=== PATIENT | female | born 1965 | race Two or more races ===

== ENCOUNTER → 2017-10-06 15:17 | Outpatient (CLI) | payer MEDICAID, SELFPAY ==
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
== END ==
PROVIDERS: Family Provider Nurse Practitioner Family; PCP Nurse Practitioner Family; Visit Provider Nurse Practitioner Obstetrics & Gynecology
DX: R92.8 Other abnormal and inconclusive findings on diagnostic imaging of breast (principal)
CPT/HCPCS: 76641; 77066

== ENCOUNTER → 2018-03-16 15:24 | Outpatient (CLI) | payer MEDICAID, SELFPAY ==
--- NOTE | 2018-03-16 15:28 | MM_ITS ---
MM Dig mamm DX unilat RT CAD INDICATION: Follow-up ORDERING PHYSICIAN: Zandra Dallas PATIENT AGE: 52 years COMPARISON: 10/06/2017 TECHNIQUE: Standard images along with spot compression views FINDINGS: Average fibroglandular tissue. Postsurgical changes with surgical clips in the upper aspect of the right breast centrally with some architectural distortion felt to be related to scarring. No malignant appearing mass or malignant appearing microcalcification. No significant change compared to the previous exam IMPRESSION: Stable appearance of the right breast. Architectural distortion centrally felt to be related to postsurgical change, stable BI-RADS Category: 2 Benign Finding(s) RECOMMENDED FOLLOW-UP: 6M - 6 MONTH FOLLOW-UP (A letter has been sent to the patient regarding results of the study.)
== END ==
PROVIDERS: Family Provider Nurse Practitioner Family; PCP Nurse Practitioner Family; Visit Provider Nurse Practitioner Family
DX: Z12.31 Encounter for screening mammogram for malignant neoplasm of breast (principal)
CPT/HCPCS: 77065

== ENCOUNTER → 2018-04-17 09:09 | Outpatient (CLI) | payer MEDICAID, SELFPAY ==
--- NOTE | 2018-04-17 09:13 | US_ITS ---
US abdomen limited History:Right upper quadrant pain with nausea Ordering Physician:Zandra Dallas Patient Age: 52 years Comparison:None Findings: Pancreas:Unremarkable. No obvious mass or abnormal fluid collection. No ductal dilatation Liver:No focal liver lesions demonstrated. Homogeneous echogenicity. No intrahepatic biliary ductal dilatation evident. There is increased echogenicity of the liver consistent with fatty liver. There is appropriate directional blood flow within the portal vein which does not appear dilated. Right Kidney:Unremarkable. Normal size and echogenicity. No hydronephrosis Gallbladder:No gallstones, gallbladder wall thickening, pericholecystic fluid, or biliary dilatation. Impression: Fatty liver, otherwise Negative gallbladder/right upper quadrant ultrasound
== END ==
PROVIDERS: Family Provider Nurse Practitioner Family; PCP Nurse Practitioner Family; Visit Provider Nurse Practitioner Family
DX: R10.11 Right upper quadrant pain (principal)
CPT/HCPCS: 76705

== ENCOUNTER → 2018-05-20 10:08 | Outpatient (CLI) | payer MEDICAID, SELFPAY ==
--- NOTE | 2018-05-20 10:15 | NM_ITS ---
NM hepatobiliary wo pharm HISTORY: ITS.REASON: UPPER ABD PAIN,DYSPEPSIA ORDERING PHYSICIAN: Zandra Dallas PATIENT AGE: 52 years COMPARISON: None DOSE: 8.85 MCI TC Choletec Fatty Meal ENSURE. No pain reported after fatty meal FINDINGS: Homogeneous activity is present within the hepatic parenchyma. Activity is present in the gallbladder by 10 minutes. Activity is present in the small bowel by 60 minutes. The gallbladder ejection fraction is calculated to be 55%. The patient did not report pain or other symptoms during the fatty meal. IMPRESSION: Unremarkable hepatobiliary scan and gallbladder ejection fraction. No evidence of common or cystic duct obstruction with normal gallbladder ejection fraction
== END ==
PROVIDERS: Family Provider Nurse Practitioner Family; PCP Nurse Practitioner Family; Visit Provider Nurse Practitioner Family
DX: R10.13 Epigastric pain (principal); R10.10 Upper abdominal pain, unspecified
CPT/HCPCS: 78226; A9502

== ENCOUNTER → 2018-07-13 16:43 | Outpatient (CLI) | payer MEDICAID, SELFPAY | PROVIDERS: PCP Family Medicine; Visit Provider Student in an Organized Health Care Education/Training Program | DX: Z12.31 Encounter for screening mammogram for malignant neoplasm of breast (principal) ==

== ENCOUNTER → 2018-08-14 14:18 | Outpatient (CLI) | payer MEDICAID, SELFPAY ==
--- NOTE | 2018-08-14 14:24 | XR_ITS ---
EXAM: XR cervical spine 5V HISTORY: ITS.REASON: LEFT SHOULDER PAIN,CERVICALGIA ORDERING PHYSICIAN: Zandra Dallas PATIENT AGE: 52 years COMPARISON: None FINDINGS: Normal alignment. No fracture or dislocation. No lytic or blastic change. No significant degenerative change. The disc spaces are preserved. Patient's head is tilted toward the right which could be due to patient positioning or muscle spasm. C6 and C7 are not well visualized on the lateral view. There is a faint outline of the vertebral bodies on the swimmer's view. The foramina are widely patent IMPRESSION: No acute bony finding. Head tilt to the right which could be related to muscle spasm
--- NOTE | 2018-08-14 14:24 | XR_ITS ---
XR shoulder LT min 2V HISTORY: ITS.REASON: LEFT SHOULDER PAIN,CERVICALGIA ORDERING PHYSICIAN: Zandra Dallas PATIENT AGE: 52 years Comparison: None FINDINGS: No fracture or dislocation. No lytic or blastic change. There is normal mineralization. The joint spaces are well-preserved. No significant degenerative/arthritic changes. No erosive changes evident. IMPRESSION: Negative, no acute finding
== END ==
PROVIDERS: PCP Nurse Practitioner Family; Visit Provider Nurse Practitioner Family
DX: M25.512 Pain in left shoulder (principal); M54.2 Cervicalgia
CPT/HCPCS: 72050; 73030

== ENCOUNTER → 2018-08-19 13:28 | Outpatient (CLI) | payer MEDICAID, SELFPAY ==
--- NOTE | 2018-08-19 13:31 | MM_ITS ---
MM Dig mamm BI DX w/CAD, US breast LT complete INDICATION: Palpable abnormality left breast. Prior right breast surgery ORDERING PHYSICIAN: Zandra Dallas PATIENT AGE: 52 years COMPARISON: 03/16/2018, 10/06/2017, TECHNIQUE: Standard images performed along with bilateral spot compression views and left breast ultrasound FINDINGS: There is average fibroglandular tissue. Postsurgical changes are present involving the right breast superiorly with multiple surgical clips and architectural distortion as before. No malignant appearing mass or malignant appearing microcalcifications. There is some asymmetric density in the retroareolar region superiorly which does appear to compress out. The palpable abnormality is in the left axillary region. A marker is placed in this area. There are 2 lymph nodes deep to this region on the mammogram in the left axilla measuring approximately 2 cm each. There is an 8 mm nodular density in the medial aspect of the left breast at the 10:00 region. Similar to the study of 10/06/2017. No malignant appearing mass or malignant appearing microcalcification is evident. Left breast ultrasound: At 4:00 there is a 4 mm complex cystic nodule. Margins are somewhat ill-defined. O'clock there is a complex cystic nodule at 7 mm. At 11:00 there is a 7 mm cyst responding to the mammographic abnormality. A 4 mm cyst is present in the retroareolar region. IMPRESSION: Palpable abnormality left breast. Correspond to a couple of lymph nodes. There is no significant change in the cyst in the 10:00 region of the left breast. Ultrasound of left breast showed a somewhat complex hypoechoic nodule at 4:00 measuring 5 mm and at 6:00 measuring 7 mm. These may be due to complex cysts. Six-month follow-up is suggested. Recommend left-sided month mammographic and sonographic follow-up BI-RADS Category: 3 Probably Benign Finding Short Term Follow-up RECOMMENDED FOLLOW-UP: 6M - 6 MONTH FOLLOW-UP (A letter has been sent to the patient regarding results of the study.)
== END ==
PROVIDERS: PCP Nurse Practitioner Family; Visit Provider Nurse Practitioner Family
DX: N63.20 Unspecified lump in the left breast, unspecified quadrant (principal); R59.0 Localized enlarged lymph nodes; M25.512 Pain in left shoulder
CPT/HCPCS: 76641; 77066

== ENCOUNTER → 2018-12-17 13:34 | Outpatient (CLI) | payer MEDICAID, SELFPAY ==
--- NOTE | 2018-12-17 13:39 | US_ITS ---
MM Dig mamm DX unilat LT CAD, US breast LT complete INDICATION: Follow-up left breast density ORDERING PHYSICIAN: Laci Sandhu MD PATIENT AGE: 53 years COMPARISON: 08/19/2018, 09/04/2016 TECHNIQUE: Standard images performed along spot compression views and left breast ultrasound FINDINGS: Average fibroglandular tissue. There is a benign-appearing 7 mm nodule within the medial aspect of the left breast similar to the previous exam. This is not significant changed from 10/06/2017. Left breast ultrasound: Complex 6 x 6 mm cyst at 5:00 probably unchanged. 7 mm benign-appearing cyst at 11:00 unchanged. This may account for the mammographic abnormality 4 mm cyst in the retroareolar region unchanged. There are enlarged nodes in the axilla as previously described. IMPRESSION: Benign findings left breast. No evidence of malignancy BI-RADS Category: 2 Benign Finding(s) RECOMMENDED FOLLOW-UP: 6M - 6 MONTH FOLLOW-UP (A letter has been sent to the patient regarding results of the study.)
== END ==
PROVIDERS: PCP Family Medicine; Visit Provider Surgery
DX: N60.11 Diffuse cystic mastopathy of right breast (principal); N60.12 Diffuse cystic mastopathy of left breast
CPT/HCPCS: 76641; 77065

== ENCOUNTER → 2019-03-22 15:54 | Outpatient (CLI) | payer MEDICAID, SELFPAY ==
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
== END ==
PROVIDERS: PCP Nurse Practitioner Family; Visit Provider Nurse Practitioner Family
DX: R20.0 Anesthesia of skin (principal); S09.90XA Unspecified injury of head, initial encounter
CPT/HCPCS: 72050

== ENCOUNTER → 2019-03-23 15:30 | Outpatient (CLI) | payer MEDICAID, SELFPAY ==
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
== END ==
PROVIDERS: PCP Nurse Practitioner Family; Visit Provider Nurse Practitioner Family
DX: G44.89 Other headache syndrome (principal); S09.90XA Unspecified injury of head, initial encounter
CPT/HCPCS: 70450

== ENCOUNTER → 2019-04-14 10:22 | Outpatient (CLI) | payer MEDICAID, SELFPAY ==
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
== END ==
PROVIDERS: PCP Family Medicine; Visit Provider Nurse Practitioner Family
DX: R93.0 Abnormal findings on diagnostic imaging of skull and head, not elsewhere classified (principal)
CPT/HCPCS: 70488; Q9967

== ENCOUNTER 2019-06-04 16:00 | Outpatient (RCR) | payer OTHER, MEDICAID, SELFPAY ==
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
== END 2019-06-04 16:05 | disposition home or self-care (01) ==
LOC: PT 16:00
PROVIDERS: PCP Nurse Practitioner Family; Visit Provider Nurse Practitioner Family
DX: S13.4XXA Sprain of ligaments of cervical spine, initial encounter (principal); R20.0 Anesthesia of skin
CPT/HCPCS: 97010; 97012; 97014; 97035; 97110; 97140; 97163; G0283

== ENCOUNTER → 2019-08-03 13:28 | Outpatient (CLI) | payer OTHER, SELFPAY ==
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
== END ==
PROVIDERS: PCP Nurse Practitioner Family; Visit Provider Nurse Practitioner Family
DX: S13.4XXD Sprain of ligaments of cervical spine, subsequent encounter (principal); M54.2 Cervicalgia
CPT/HCPCS: 72141; 76376

== ENCOUNTER → 2019-09-07 12:56 | Outpatient (CLI) | payer OTHER, SELFPAY ==
--- NOTE | 2019-09-07 12:56 | US_ITS ---
PROCEDURE: US BREAST LT COMPLETE CLINICAL INDICATION: 6 MO F/U COMPARISON: BREASTLT US breast LT complete from 12/17/2018 MM DIG MAMM BI DX W/CAD from 09/07/2019 FINDINGS: There are multiple cyst of the left breast including a 7 x 3 mm cyst at 3 o'clock, 4 mm cyst at 5 o'clock, 8 mm complicated cyst at 5 o'clock not significantly changed, 7 mm cyst at 11 o'clock not significantly changed, 5 mm cyst in the retroareolar region and not significantly changed. There is a hypoechoic area at 1 o'clock. This is questionable and could be due to some underlying fibroglandular tissue. Probably benign.. IMPRESSION: BI-RADS category 3 probably benign. Recommend six-month follow-up Dictated by: Raffaele Boston MD 09/24/2019 14:23 Electronically signed by Raffaele Boston MD in [place] 09/24/2019 14:23
--- NOTE | 2019-09-07 12:56 | MM_ITS ---
PROCEDURE: MM DIG MAMM BI DX W/CAD CLINICAL INDICATION: 6 MO FU ON LEFT BREAST NODULE, yearly screening for right breast, previous biopsy right breast for benign disease. There is a history of breast cancer patient's paternal aunt diagnosed after menopause. COMPARISON: DXBI MM Dig mamm BI DX w/CAD from 10/06/2017 DXRT MM Dig mamm DX unilat RT CAD from 03/16/2018 DXBI MM Dig mamm BI DX w/CAD from 08/19/2018 DXLT MM Dig mamm DX unilat LT CAD from 12/17/2018 TECHNIQUE: Standard CC and MLO images were obtained. R2 CAD reviewed. FINDINGS: Prominent heterogenic fibroglandular densities are seen in the central portions of both breasts. The nodular density central portion left breast is stable unchanged from the previous studies. Again noted is a mole marker right breast. Multiple surgical clips right breast at previous biopsy site. There is no new or suspicious lesion in either breast and no suspicious microcalcifications. IMPRESSION: Stable exam with no suspicious lesions seen BI-RAD Category: 2 Benign Finding(s) FOLLOW-UP: 1YR 1 Year Follow-up (A letter has been sent to the patient regarding results of the study.) Dictated by: Dr. Adriel Abbott MD 09/11/2019 10:[address] Adriel Abbott MD in [place] 09/11/2019 10:03
== END ==
PROVIDERS: PCP Nurse Practitioner Family; Visit Provider Surgery
DX: N60.12 Diffuse cystic mastopathy of left breast (principal)
CPT/HCPCS: 76641; 77066

== ENCOUNTER 2019-11-26 16:00 | Outpatient (RCR) | payer OTHER, SELFPAY | END 2019-11-26 16:05 | disposition home or self-care (01) | LOC: PT 16:00 | PROVIDERS: PCP Nurse Practitioner Family; Visit Provider Family Medicine Sports Medicine | DX: S16.1XXS Strain of muscle, fascia and tendon at neck level, sequela (principal) | CPT/HCPCS: 20560; 20561; 97010; 97014; 97035; 97110; 97140; 97163; 97164; G0283 ==

== ENCOUNTER → 2020-03-06 10:12 | Outpatient (POV) | payer OTHER, SELFPAY | PROVIDERS: Visit Provider Nurse Practitioner Family | DX: Z00.00 Encounter for general adult medical examination without abnormal findings (principal) ==

== ENCOUNTER → 2020-03-13 15:58 | Outpatient (CLI) | payer OTHER, SELFPAY ==
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
--- NOTE | 2020-03-13 16:04 | XR_ITS ---
PROCEDURE: XR CERVICAL SPINE 5V CLINICAL INDICATION: RIGH ARM AND SHOULDER PAIN/CERVICALGIA COMPARISON: [id number] XR cervical spine 5V from 08/14/2018 FINDINGS: There is normal alignment. No fracture or dislocation. There is fusion of the C2 and C3 vertebral bodies/Klippel-Feil deformity. The neural foramina are widely patent. No significant degenerative change. 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
== END ==
PROVIDERS: PCP Nurse Practitioner Family; Visit Provider Nurse Practitioner Family
DX: M25.511 Pain in right shoulder (principal); M79.621 Pain in right upper arm; M54.2 Cervicalgia
CPT/HCPCS: 72050; 73030; 73060

== ENCOUNTER → 2020-04-11 15:05 | Outpatient (CLI) | payer OTHER, SELFPAY ==
--- NOTE | 2020-04-11 15:05 | US_ITS ---
PROCEDURE: US BREAST LT COMPLETE CLINICAL INDICATION: 6 mo fu Follow-up abnormal ultrasound COMPARISON: US BREASTLT US breast LT complete from 12/17/2018 MG MM DIG MAMM BI DX W/CAD from 09/07/2019 US US BREAST LT COMPLETE from 09/07/2019 FINDINGS: At 12 o'clock there is a bilobular cyst at 9 mm. Additional 6 mm cyst noted at 12 o'clock. Near the nipple there is a 10 x 4 mm complicated cyst at 12 o'clock. At 3 o'clock there is a 10 x 3 mm cyst. At 1 o'clock there is a hypoechoic nodule at 5 x 4 mm. This is not significantly changed. Continued follow-up suggested. At 5 o'clock there is a 6 x 3 mm cyst and at 6 o'clock a 6 mm complicated cyst at 10 o'clock there is a hypoechoic nodule at 5 mm and may be due to small cyst. At 11 o'clock there is a 7 mm complicated cyst with a septation. There is a mildly prominent node in the axilla at 3 cm IMPRESSION: There are multiple left breast cysts some of which are complicated. No significant change in the hypoechoic nodule 1 o'clock. BI-RADS category 3 probably benign. Recommend continued six-month follow-up along with bilateral mammogram Dictated b Raffaele Boston MD 04/14/2020 10:53 Raffaele Boston MD in [place] 04/14/2020 10:53
== END ==
PROVIDERS: PCP Nurse Practitioner Family; Visit Provider Surgery
DX: N60.02 Solitary cyst of left breast (principal)
CPT/HCPCS: 76641

== ENCOUNTER → 2020-04-24 14:18 | Outpatient (CLI) | payer OTHER, SELFPAY ==
--- NOTE | 2020-04-24 14:26 | XR_ITS ---
PROCEDURE: XR CHEST 2V CLINICAL HISTORY: CHEST PAIN AT REST, SOB COMPARISON: CR CXR CHEST(2 VIEWS-NOT PORTABLE) from 05/01/2015 FINDINGS: The cardiomediastinal silhouette and pulmonary vascularity are within normal limits. The lungs are clear without infiltrates, suspicious nodules, or pleural effusions. Surgical clips overlie the mid chest in the right breast region. No acute bony findings. IMPRESSION: No acute findings. Dictated by: Raffaele Boston MD 04/24/2020 15:15 Raffaele Boston MD in [place] 04/24/2020 15:15
== END ==
PROVIDERS: PCP Nurse Practitioner Family; Visit Provider Nurse Practitioner Family
DX: R07.9 Chest pain, unspecified (principal); R06.02 Shortness of breath
CPT/HCPCS: 71046

== ENCOUNTER → 2020-05-01 09:40 | Outpatient (CLI) | payer OTHER, SELFPAY ==
[2020-05-01 10:25] VITALS: PULSE 71; PULSE 76
== END ==
PROVIDERS: PCP Nurse Practitioner Family; Visit Provider Nurse Practitioner Family
DX: R06.02 Shortness of breath (principal); R06.00 Dyspnea, unspecified
CPT/HCPCS: 94060; 94640

== ENCOUNTER 2020-05-04 17:30 | Outpatient (RCR) | payer OTHER, SELFPAY | END 2020-05-04 18:27 | disposition home or self-care (01) | LOC: PT 17:30 | PROVIDERS: PCP Nurse Practitioner Family; Visit Provider Family Medicine Sports Medicine | DX: M54.2 Cervicalgia; S16.1XXS Strain of muscle, fascia and tendon at neck level, sequela | CPT/HCPCS: 20560; 97010; 97012; 97014; 97110; 97140; 97163; G0283 ==

== ENCOUNTER → 2020-08-08 11:53 | Outpatient (CLI) | payer OTHER, SELFPAY ==
[2020-08-09 15:51] LABS: Covid-19 Nasal PCR Sendout Lex Not Detected
== END ==
PROVIDERS: PCP Nurse Practitioner Family; Visit Provider Nurse Practitioner Family
DX: Z03.818 Encounter for observation for suspected exposure to other biological agents ruled out (principal)
CPT/HCPCS: U0004

== ENCOUNTER → 2020-09-18 16:04 | Outpatient (CLI) | payer OTHER, SELFPAY ==
--- NOTE | 2020-09-18 16:07 | MM_ITS ---
PROCEDURE: MM DIG SCREENING MAMM BI W/CAD Digital Breast Tomosynthesis Included CLINICAL INDICATION: 1 yr fu There has been a previous lumpectomy right breast. There is a history of breast cancer in the patient's paternal aunt diagnosed in her 50s. COMPARISON: US BREASTLT US breast LT complete from 10/06/2017 MG DXBI MM Dig mamm BI DX w/CAD from 08/19/2018 MG DXLT MM Dig mamm DX unilat LT CAD from 12/17/2018 MG MM DIG MAMM BI DX W/CAD from 09/07/2019 TECHNIQUE: Standard CC and MLO images and 3D Tomosynthesis was obtained. R2 CAD reviewed. FINDINGS: Moderate diffuse fibroglandular densities are seen in the central portions of both breast. There is moderate post lumpectomy scarring with surgical clips upper central portion right breast. There are few scattered benign-appearing microcalcifications right breast. There is no new or suspicious lesion in either breast and no suspicious microcalcifications. IMPRESSION: Moderate breast density with stable post lumpectomy scarring right breast BI-RAD Category: 2 Benign Finding(s) FOLLOW-UP: 1YR 1 Year Follow-up (A letter has been sent to the patient regarding results of the study.) Dictated by: Dr. Adriel Abbott MD 09/19/2020 08:28 Dr. Adriel Abbott MD in [place] 09/19/2020 08:28
== END ==
PROVIDERS: PCP Nurse Practitioner Family; Visit Provider Surgery
DX: Z12.31 Encounter for screening mammogram for malignant neoplasm of breast (principal)
CPT/HCPCS: 77063; 77067

== ENCOUNTER → 2020-10-02 13:05 | Outpatient (CLI) | payer OTHER, SELFPAY ==
--- NOTE | 2020-10-02 13:06 | US_ITS ---
PROCEDURE: US BREAST LT COMPLETE CLINICAL INDICATION: Lt breast cyst COMPARISON: US US BREAST LT COMPLETE from 09/07/2019 US US BREAST LT COMPLETE from 04/11/2020 FINDINGS: There is a complicated cyst in the 12 o'clock region of the left breast measuring 8 4 mm. At 1 o'clock there is a 4 mm cyst. At 2 o'clock there is a 10 x 3 mm cyst. At 1 o'clock there is a 4 x 5 mm slightly hypoechoic nodule not cystic. At 3 o'clock there is a 10 x 3 mm complicated cyst. At 5 o'clock there is a 5 mm complicated cyst. At 6 o'clock there is a 9 x 7 mm complicated cyst. At 10 o'clock there is a 7 x 4 mm cyst. At 11 o'clock there is a 3 mm cyst. Small nodes are present in the axilla IMPRESSION: Numerous complicated left breast cysts not significantly changed. No change 4 mm hypoechoic left breast nodule from 09/07/2019. Dictated by: Raffaele Boston MD 10/09/2020 17:28 Raffaele Boston MD in [place] 10/09/2020 17:28
== END ==
PROVIDERS: PCP Nurse Practitioner Family; Visit Provider Surgery
DX: N60.12 Diffuse cystic mastopathy of left breast (principal)
CPT/HCPCS: 76641

== ENCOUNTER → 2020-10-30 11:25 | Outpatient (POV) | payer OTHER, SELFPAY | PROVIDERS: Visit Provider Nurse Practitioner Family | DX: Z00.00 Encounter for general adult medical examination without abnormal findings (principal) ==

== ENCOUNTER 2021-01-01 09:33 | Emergency (ER) | payer OTHER, SELFPAY ==
[2021-01-01 09:52] VITALS: BP 125/77; PULSE 78; RESP 18; TEMP 37; O2SAT 100; BMI 24.8
[2021-01-01 10:00] LABS: Apearance,Urine Clear (Clear); Color,Urine Yellow (Yellow)
[2021-01-01 10:01] LABS: Bilirubin,Urine Negative (Negative); Blood, Urine Trace (Negative); Glucose,Urine (UA) Negative (Negative); Ketones,Urine Negative (Negative); Protein,Urine Negative (Negative); UTC Leukocyte Esterase,Urine 1+ (Negative); UTC Nitrate,Urine Negative (Negative); Urobilinogen,Urine 0.2 EU/dl (0.2)
--- NOTE | 2021-01-01 10:13 | HMH.EDUTC ---
[facility] [place] Clinical Impression: UTI (urinary tract infection) Qualifiers: Urinary tract infection type: site unspecified Hematuria presence: with hematuria Qualified Code(s): N39.0 - Urinary tract infection, site not specified; R31.9 - Hematuria, unspecified Disposition: Home, Self-Care Condition on Discharge: Good Instructions: Trimethoprim/Sulfamethoxazole (Alternative Therapy), Phenazopyridine Additional Instructions: *Increase fluids. Water not Soda or Tea *Start antibiotic immediately and be sure to take as ordered for the FULL length of time although you should start to see improvement over the next 48 hours *Pyridium as needed Remember this medication will turn your urine [place]. This is normal but it will stain what ever it gets on *You should not use Pyridium for more than 48 hours. If so , follow up with your primary physician to review urine culture and ensure that antibiotic is adequate for infection *Be SURE to follow up anytime for new or worsening symptoms with your family doctor. AND in 48 hours for urine culture results with your family doctor, if you do not have a doctor then you may call back to the [facility] for urine culture results and further treatment. We do recommend that you choose and establish care with a Primary Care Physician. AND follow up with them in 10-14 days to repeat UA to ensure infection is resolved and blood no longer present *Be sure to let your PCP know that we sent urine cultures from the [facility] so they can follow up to ensure that you area the on the correct antibiotic Call your doctor office and make appointment for 48 hours (2 days from today) to follow up and get the results of your urine culture and further treatment Follow up with Family Doctor or call back to the [facility] on Fri for urine culture results to make sure you are on correct antibiotic Prescriptions: Sulfamethoxazole/Trimethoprim [Bactrim DS tablet] 1 each PO BID 10 Days #20 tab Transmission Status: Pending to [employer] # Phenazopyridine HCl [Pyridium 200mg Tablet] 200 pow PO TID #6 tab Transmission Status: Pending to [employer] # Referrals: Zandra Dallas APRN [Primary Care Provider] - As needed Time of Disposition: 10:26 Medical Decision Making - Ashok Inquiry Pt receiving controlled substance: No Ashok was queried for this patient: No Vital Signs: 01/01/21 09:52 Temperature 98.6 F Temperature Source Oral Pulse Rate [Right Brachial] 78 Respiratory Rate 18 Blood Pressure [Right Arm] 125/77 Blood Pressure Mean [Right Arm] 93 Blood Pressure Source [Right Arm] Automatic Cuff Blood Pressure Position [Right Arm] Sitting 02 Sat by Pulse Oximetry 78 L Oxygen Delivery Method Room Air - Lab Data Lab results reviewed: Yes: I reviewed the patient's lab results. Lab Results 01/01/21 09:42: Urine Color Yellow, Urine Appearance Clear, Urine pH 7.0, Ur Specific [place] 1.010, Urine Protein Negative, Urine Glucose (UA) Negative, Urine Ketones Negative, Urine Blood Trace, Urine Nitrate Negative, Urine Bilirubin Negative, Urine Urobilinogen 0.2, Ur Leukocyte Esterase 1+ A Orders (Tests/Meds): ORDERS Category Date Time Status Urine Culture Stat Micro 01/01/21 10:00 Ordered Medical Decision Narrative: Patient reports that she has taken both medications before without complications or reactions [facility] [place] HPI - General Stated complaint: possible uti Time Seen by Provider: 01/01/21 10:15 Mode of Arrival: Ambulatory Source of Information: Patient Limitations: No Limitations Description of Symptoms (Recalled from Triage Doc. by RN): lower abdominal cramping, frequent urination & burning since last night. HEENT Symptoms (Recalled from RN notes): No Resp Symptoms (Recalled from RN notes): No Skin Symptoms (Recalled from RN notes): No MS Symptoms (Recalled from RN notes): No Functional Status (Recalled from RN notes): wnl - History of Present Illness Provider Complaint: Sandi
[2021-01-01 10:38] VITALS: BP 125/77; PULSE 78; RESP 18; TEMP 37; O2SAT 100
== END 2021-01-01 10:40 | disposition home or self-care (01) ==
PROVIDERS: Emergency Provider Nurse Practitioner; PCP Nurse Practitioner Family
DX: N30.01 Acute cystitis with hematuria (principal); E78.5 Hyperlipidemia, unspecified
CPT/HCPCS: 81003; 87086; 87088; 87186; 99202; G0463

== ENCOUNTER 2021-01-11 16:26 | Emergency (ER) | payer OTHER, SELFPAY ==
[2021-01-11 16:38] VITALS: BP 140/83; PULSE 73; RESP 16; TEMP 36.9; O2SAT 99; BMI 26.5
--- NOTE | 2021-01-11 16:43 | HMH.EDUTC ---
[facility] – [place] Disposition Clinical Impression: Sinusitis Qualifiers: Sinusitis location: unspecified location Chronicity: unspecified Qualified Code(s): J32.9 - Chronic sinusitis, unspecified Disposition: Home, Self-Care Condition on Discharge: Good Instructions: Sinusitis, DI for Sinusitis Additional Instructions: *Monitor Temp, Over the counter Motrin or Tylenol as directed/as needed Tylenol every 4 hours and Motrin every 6 hours (as long as your family doctor has told you that you can take it) for fever or pain. and straight to ER if unable to lower temp less than 101.0 after medication given *Warm salt water gargles may help to soothe the throat *Throat Lozenges *Warm fluids like tea with honey may help to soothe the throat *Sleep elevated *Humidifier/Vaporizer *Flonase 2 sprays in each nostril daily but be aware that it may take 2-3 days before you notice improvement Take medication as prescribed Follow up IMMEDIATELY for new or worsening symptoms or no Noticeable improvement over the next 48-72 hours. 911 for difficulty breathing or swallowing Prescriptions: predniSONE [Deltasone 10mg tablet] 10 mg PO BID 5 Days #10 tab Transmission Status: Pending to [employer] # Fluticasone Propionate [Flonase 50mcg nasal spray 16gm] 1 spr NS DAILY #1 bottle Transmission Status: Pending to [employer] # Azithromycin [Z-Romain 250mg Tab] 250 mg PO DIRECTED #6 tab Transmission Status: Pending to [employer] # Referrals: Zandra Dallas APRN [Primary Care Provider] - As needed Time of Disposition: 16:51 Medical Decision Making - Ashok Inquiry Pt receiving controlled substance: No Ashok was queried for this patient: No Vital Signs: 01/11/21 16:38 Temperature 98.4 F Temperature Source Oral Pulse Rate [Right] 73 Respiratory Rate 16 Blood Pressure [Right Arm] 140/83 Blood Pressure Mean [Right Arm] 102 Blood Pressure Source [Right Arm] Automatic Cuff Blood Pressure Position [Right Arm] Sitting 02 Sat by Pulse Oximetry 99 [facility] [place] HPI - General Stated complaint: pain behind left ear down neck Time Seen by Provider: 01/11/21 16:43 Mode of Arrival: Ambulatory Source of Information: Patient Limitations: No Limitations Description of Symptoms (Recalled from Triage Doc. by RN): pt c/o sinus pressure, and L ear pain and pressure. HEENT Symptoms (Recalled from RN notes): Yes (sinus pressure and L ear pain) Resp Symptoms (Recalled from RN notes): No Skin Symptoms (Recalled from RN notes): No MS Symptoms (Recalled from RN notes): No Functional Status (Recalled from RN notes): na - History of Present Illness Provider Complaint: Patient states that for over a week she has been having sinus pain and pressure States that for the last 3 days she has been having pain and pressure in her left ear and feels like it goes down into her neck States that today she wasnt feeling any better and still having pressure so she came in States that she is primarly Swedish speaking but can understand Ethiopian and able to speak limited Ethiopian - Related Data Home Medications Medication Instructions Recorded Confirmed levothyroxine 50 mcg capsule 50 mcg PO ONCE 04/09/18 09/27/20 omeprazole 40 mg capsule,delayed 40 mg PO ONCE 04/09/18 09/27/20 release Loratadine/Pseudoephedrine 1 each PO DAILY 09/17/19 09/27/20 [Claritin-D 24 Hour Tablet] Previous Rx's Medication Instructions Recorded Phenazopyridine HCl [Pyridium 200 pow PO TID #6 tab 01/01/21 200mg Tablet] Sulfamethoxazole/Trimethoprim 1 each PO BID 10 Days #20 tab 01/01/21 [Bactrim DS tablet] Azithromycin [Z-Romain 250mg Tab] 250 mg PO DIRECTED #6 tab 01/11/21 Fluticasone Propionate [Flonase 1 spr NS DAILY #1 bottle 01/11/21 50mcg nasal spray 16gm] predniSONE [Deltasone 10mg tablet] 10 mg PO BID 5 Days #10 tab 01/11/21 Allergies Allergy/AdvReac Type Severity Reaction Status Date / Time nickel [NICKEL] Allergy Unknown
[2021-01-11 17:02] VITALS: BP 140/87; PULSE 76; RESP 17; TEMP 36.6
== END 2021-01-11 17:02 | disposition home or self-care (01) ==
PROVIDERS: Emergency Provider Nurse Practitioner; PCP Nurse Practitioner Family
DX: J32.9 Chronic sinusitis, unspecified (principal); E03.9 Hypothyroidism, unspecified; E78.5 Hyperlipidemia, unspecified; Z79.899 Other long term (current) drug therapy
CPT/HCPCS: 99202; G0463

== ENCOUNTER 2021-02-23 17:13 | Emergency (ER) | payer OTHER, SELFPAY ==
[2021-02-23 17:20] VITALS: BP 146/85; PULSE 83; RESP 19; TEMP 37.1; O2SAT 99; BMI 25.2
--- NOTE | 2021-02-23 18:02 | HMH.EDUTC ---
[facility] [place] Clinical Impression: Bronchitis Pharyngitis Qualifiers: Pharyngitis/tonsillitis etiology: unspecified etiology Qualified Code(s): J02.9 - Acute pharyngitis, unspecified Disposition: Home, Self-Care Condition on Discharge: Good Instructions: DI for Acute Bronchitis Additional Instructions: Drink plenty of fluids. Take tylenol or ibuprofen for pain or fever. Take the medications as directed. Follow up with your regular doctor. GO TO THE ER FOR ANY WORSENING SYMPTOMS Prescriptions: predniSONE [Prednisone 20mg Tab] 20 mg PO BID 4 Days #8 tab Transmission Status: Received by [facility] # Benzonatate [Tessalon Perle 100mg Cap] 100 mg PO TIDP PRN #30 cap PRN Reason: Cough Transmission Status: Received by [facility] # Azithromycin [Z-Romain 250mg Tab*] 250 mg PO UD DOSE PK #6 tab Transmission Status: Received by [facility] # Referrals: Zandra Dallas APRN [Primary Care Provider] - Time of Disposition: 18:21 Medical Decision Making - Medical Records Medical records reviewed: No: I reviewed the patient's medical records. - Ashok Inquiry Pt receiving controlled substance: No Vital Signs: 02/23/21 17:20 02/23/21 18:31 Temperature 98.8 F 98.8 F Temperature Source Oral Pulse Rate 83 Pulse Rate [Right Brachial] 83 Respiratory Rate 19 19 Blood Pressure 146/85 H Blood Pressure [Right Arm] 146/85 H Blood Pressure Mean [Right Arm] 105 Blood Pressure Source [Right Arm] Automatic Cuff Blood Pressure Position [Right Arm] Sitting 02 Sat by Pulse Oximetry 99 Oxygen Delivery Method Room Air - Lab Data Lab results reviewed: Yes: I reviewed the patient's lab results. Orders (Tests/Meds): ORDERS Category Date Time Status Covid-19 Nasal PCR ([facility]) Routine Lab 02/23/21 18:32 Received [facility] [place] - General Stated complaint: sore throat Time Seen by Provider: 02/23/21 18:02 - History of Present Illness Provider Complaint: She c/o sore throat and cough for the past 2 days. She denies any covid exposure. - Related Data Home Medications Medication Instructions Recorded Confirmed levothyroxine 50 mcg capsule 50 mcg PO ONCE 04/09/18 09/27/20 omeprazole 40 mg capsule,delayed 40 mg PO ONCE 04/09/18 09/27/20 release Loratadine/Pseudoephedrine 1 each PO DAILY 09/17/19 09/27/20 [Claritin-D 24 Hour Tablet] Previous Rx's Medication Instructions Recorded Phenazopyridine HCl [Pyridium 200 pow PO TID #6 tab 01/01/21 200mg Tablet] Sulfamethoxazole/Trimethoprim 1 each PO BID 10 Days #20 tab 01/01/21 [Bactrim DS tablet] Azithromycin [Z-Romain 250mg Tab] 250 mg PO DIRECTED #6 tab 01/11/21 Fluticasone Propionate [Flonase 1 spr NS DAILY #1 bottle 01/11/21 50mcg nasal spray 16gm] predniSONE [Deltasone 10mg tablet] 10 mg PO BID 5 Days #10 tab 01/11/21 Azithromycin [Z-Romain 250mg Tab*] 250 mg PO UD DOSE PK #6 tab 02/23/21 Benzonatate [Tessalon Perle 100mg 100 mg PO TIDP PRN #30 cap 02/23/21 Cap] predniSONE [Prednisone 20mg 20 mg PO BID 4 Days #8 tab 02/23/21 Tab] Allergies Allergy/AdvReac Type Severity Reaction Status Date / Time nickel [NICKEL] Allergy Unknown I-RASH Verified 01/11/21 16:42 silver Allergy Unknown Blister Verified 01/11/21 16:42 [From [employer] Mesh] [facility] History - Hepatitis A Screen Attestation statement:: This patient has been screened for Hepatitis A risk factors. I have reviewed the patient's past medical history: Yes Medical History: Reports:: Hyperlipidemia, Urinary Tract Infection Denies:: Cancer, Diabetes Mellitus Type 1, Diabetes Mellitus Type 2, Internal Pacemaker, MRSA, Seizures Other Medical History: Reports: Thyroid Disease Laterality Cases: Right: Breast Biopsy Other Surgeries: Yes: Colonoscopy, Dilation and Curettage, Other. No: Pacemaker Amputation: No Fractures: No - Social History Smoking Status: Never smoker Alcohol Intake: never
[2021-02-23 18:31] VITALS: BP 146/85; PULSE 83; RESP 19; TEMP 37.1; O2SAT 99
== END 2021-02-23 18:35 | disposition home or self-care (01) ==
PROVIDERS: Emergency Provider Nurse Practitioner Family; PCP Nurse Practitioner Family
DX: J40 Bronchitis, not specified as acute or chronic (principal)
CPT/HCPCS: 99202; G0463; U0003

== ENCOUNTER → 2021-04-09 13:21 | Outpatient (CLI) | payer OTHER, SELFPAY ==
--- NOTE | 2021-04-09 13:22 | US_ITS ---
PROCEDURE: US BREAST LT COMPLETE CLINICAL INDICATION: cyst Follow-up breast nodules COMPARISON: US US BREAST LT COMPLETE from 04/11/2020 US US BREAST LT COMPLETE from 10/02/2020 FINDINGS: There are numerous complicated cyst as previously described. A 5 mm hypoechoic nodule is present 1 o'clock unchanged. May be due to a complicated cyst or even asymmetric fibroglandular tissue. No suspicious nodules are identified. IMPRESSION: Benign findings. No significant change. Dictated by: Raffaele Boston MD 04/16/2021 13:40 Raffaele Boston MD in [place] 04/16/2021 13:40
== END ==
PROVIDERS: PCP Nurse Practitioner Family; Visit Provider Surgery
DX: N60.02 Solitary cyst of left breast (principal)
CPT/HCPCS: 76641

== ENCOUNTER → 2021-06-19 15:48 | Outpatient (CLI) | payer OTHER, SELFPAY ==
[2021-06-19 16:22] LABS: Basophils # 0.1 K/mm3 (0-0.2); Basophils % 1.2 % (0.1-2.0); Eosinophils # 0.4 K/mm3 (0.0-0.4); Hematocrit 42.3 % (37.0-47.0); Hemoglobin 13.8 g/dL (12.2-16.2); Lymphocytes # 1.5 K/mm3 (0.7-4.5); Lymphocytes % 15.3 % (10-50); Mean Corpuscular HGB Conc 32.7 g/dL (31.8-35.4); Mean Corpuscular Hemoglobin 31.3 pg (27.0-31.2); Mean Corpuscular Volume 95.5 fl (81-99); Mean Platelet Volume 10.1 fl (7.4-10.4); Monocytes # 0.5 K/mm3 (0.1-1.0); Monocytes % 4.6 % (1.7-9.3); Neutrophils # 7.3 K/mm3 (1.8-7.8); Neutrophils % 74.8 % (37.0-80.0); Platelet Count 234 K/mm3 (142-424); Red Blood Count 4.43 M/mm3 (4.20-5.40); Red Cell Distribution Width 13.4 % (11.5-17.5); White Blood Count 9.8 K/mm3 (4.8-10.8)
[2021-06-19 19:04] LABS: Free T4 (Free Thyroxine) 0.77 ng/dl (0.78-2.19)
[2021-06-19 22:20] LABS: Thyroid Stimulating Hormone 2.31 uIU/mL (0.465-4.68)
[2021-06-21 09:13] LABS: Triiodothyronine (T3) Free 2.9 pg/mL (2.0-4.4)
== END ==
PROVIDERS: Visit Provider Nurse Practitioner Family
DX: E03.9 Hypothyroidism, unspecified (principal); R23.8 Other skin changes
CPT/HCPCS: 36415; 84439; 84443; 84481; 85025

== ENCOUNTER 2021-09-08 16:07 | Emergency (ER) | payer OTHER, SELFPAY ==
--- NOTE | 2021-09-08 17:52 | HMH.EDUTC ---
[facility] [place]: Strep throat Sinusitis Qualifiers: Sinusitis location: unspecified location Chronicity: acute Recurrence: non-recurrent Qualified Code(s): J01.90 - Acute sinusitis, unspecified Disposition: Home, Self-Care Condition on Discharge: Good Instructions: Strep Throat, DI for Sinusitis, DI for Strep Throat Additional Instructions: Drink plenty of fluids. Take tylenol or ibuprofen for pain or fever. Take the medications as directed. Follow up with your regular doctor. GO TO THE ER FOR ANY WORSENING SYMPTOMS Prescriptions: Benzonatate [Benzonatate 100mg cap] 100 mg PO TIDP PRN #30 cap PRN Reason: Cough Transmission Status: Received by [facility] methylPREDNISolone [Medrol] 4 mg PO DIRECTED 6 Days #21 packet Transmission Status: Received by [facility] Azithromycin [Z-Romain 250mg Tab*] 250 mg PO UD DOSE PK #6 tab Transmission Status: Received by [facility] Referrals: Zandra Dallas APRN [Primary Care Provider] - Time of Disposition: 18:16 Medical Decision Making - Medical Records Medical records reviewed: No: I reviewed the patient's medical records. - Ashok Inquiry Pt receiving controlled substance: No Vital Signs: 09/08/21 17:59 09/08/21 18:20 Temperature 98.2 F 98.2 F Temperature Source Oral Pulse Rate 78 Pulse Rate [Left] 78 Respiratory Rate 18 18 Blood Pressure 140/87 Blood Pressure [Right Arm] 140/87 Blood Pressure Mean [Right Arm] 104 02 Sat by Pulse Oximetry 100 - Lab Data Lab results reviewed: Yes: I reviewed the patient's lab results. Lab Results 09/08/21 18:21: Chlamy pneumoniae PCR Not detected, Adenovirus (PCR) Not detected, B. pertussis DNA (PCR) Not detected, Coronavirus OC43 (PCR) Not detected, Coronavirus HKU1 (PCR) Not detected, Coronavirus 229E (PCR) Not detected, SARS-CoV-2 (PCR) Not detected, Coronavirus NL63 (PCR) Not detected, Human Metapneumovir PCR Not detected, Influenza A (H1) PCR Not detected, Influ A (H1N1/09) PCR Not detected, Influenza A (H3) PCR Not detected, Influenza Type A (PCR) Not detected, Influenza Type B (PCR) Not detected, M. pneumoniae (PCR) Not detected, Parainfluenza 1 (PCR) Not detected, Parainfluenza 2 (PCR) Not detected, Parainfluenza 3 (PCR) Not detected, Parainfluenza 4 (PCR) Not detected, RSV (PCR) Not detected, Entero/Rhino (PCR) Not detected [facility] [place] - General Stated complaint: weakness,KEARNS Congestion Time Seen by Provider: 09/08/21 17:52 - History of Present Illness Provider Complaint: She c/o sinus congestion, head ache and sore throat for the past 3 days. Her grandson has strep throat. She denies significant chest congestion. - Related Data Home Medications Medication Instructions Recorded Confirmed levothyroxine 50 mcg capsule 50 mcg PO ONCE 04/09/18 04/25/21 omeprazole 40 mg capsule,delayed 40 mg PO ONCE 04/09/18 04/25/21 release Previous Rx's Medication Instructions Recorded Benzonatate [Tessalon Perle 100mg 100 mg PO TIDP PRN #30 cap 02/23/21 Cap] Azithromycin [Z-Romain 250mg Tab*] 250 mg PO UD DOSE PK #6 tab 09/08/21 Benzonatate [Benzonatate 100mg 100 mg PO TIDP PRN #30 cap 09/08/21 cap] methylPREDNISolone [Medrol] 4 mg PO DIRECTED 6 Days #21 09/08/21 packet Allergies Allergy/AdvReac Type Severity Reaction Status Date / Time nickel [NICKEL] Allergy Unknown I-RASH Verified 04/25/21 09:52 silver Allergy Unknown Blister Verified 04/25/21 09:52 [From Tegaderm AG Mesh] [facility] History - Hepatitis A Screen Attestation statement:: This patient has been screened for Hepatitis A risk factors. I have reviewed the patient's past medical history: Yes Medical History: Reports:: Gastroesophageal Reflux Disease(GERD), Hyperlipidemia, Urinary Tract Infection Denies:: Cancer, Diabetes Mellitus Type 1, Diabetes Mellitus Type 2, Internal Pacemaker, MRSA, Seizures Other Medical History: Reports: Hypothyroidism, Thyro
[2021-09-08 17:59] VITALS: BP 140/87; PULSE 78; RESP 18; TEMP 36.8; O2SAT 100; BMI 27.7
[2021-09-08 18:20] VITALS: BP 140/87; PULSE 78; RESP 18; TEMP 36.8
[2021-09-08 18:57] LABS: Adenovirus,PCR Not Detected (NotDetected); Bordetella Pertussis Not Detected (NotDetected); Chlamydophila Pneumoniae, PCR Not Detected (NotDetected); Coronavirus 19, PCR Not Detected (NotDetected); Coronavirus 229E Not Detected (NotDetected); Coronavirus NL63 Not Detected (NotDetected); Coronavirus OC43 Not Detected (NotDetected); Coronovirus HKU1,PCR Not Detected (NotDetected); Human Metapneumovirus Not Detected (NotDetected); Influenza A, PCR Not Detected (NotDetected); Influenza AH1, 2009 Not Detected (NotDetected); Influenza AH1, PCR Not Detected (NotDetected); Influenza AH3,PCR Not Detected (NotDetected); Influenza B, PCR Not Detected (NotDetected); Mycoplasma Pneumoniae, PCR Not Detected (NotDetected); Parainfluenza 1, PCR Not Detected (NotDetected); Parainfluenza 2, PCR Not Detected (NotDetected); Parainfluenza 3, PCR Not Detected (NotDetected); Parainfluenza 4, PCR Not Detected (NotDetected); Respiratory Syncytial Virus Not Detected (NotDetected); Rhinovirus/Enterovirus Not Detected (NotDetected)
== END 2021-09-08 18:26 | disposition home or self-care (01) ==
PROVIDERS: Emergency Provider Nurse Practitioner Family; PCP Nurse Practitioner Family
DX: J02.0 Streptococcal pharyngitis (principal); J01.90 Acute sinusitis, unspecified; K21.9 Gastro-esophageal reflux disease without esophagitis; E78.5 Hyperlipidemia, unspecified; E03.9 Hypothyroidism, unspecified
CPT/HCPCS: 87581; 87632; 87798; 99203; C9803; G0463; U0003; U0005

== ENCOUNTER → 2021-09-17 16:02 | Outpatient (CLI) | payer OTHER, SELFPAY ==
--- NOTE | 2021-09-17 16:02 | MM_ITS ---
PROCEDURE INFORMATION: Exam: MG Bilateral Screening 3D Mammography Exam date and time: 09/17/2021 4:02 PM Age: 55 years old Clinical indication: Encounter for screening mammogram for malignant neoplasm of breast TECHNIQUE: Imaging protocol: Bilateral screening tomosynthesis and 2D mammography including computer-aided detection (CAD) when performed. COMPARISON: 1. MG MM DIG SCREENING MAMM BI W/CAD 09/18/2020 4:16 PM 2. MG MM DIG MAMM BI DX W/CAD 09/07/2019 1:24 PM FINDINGS: MAMMOGRAPHY: Breast composition: The breast tissue is heterogeneously dense, which may obscure small masses. Mass: None. Architectural distortion: None. Calcifications: No suspicious calcifications. Asymmetric density: None. Skin thickening: None. Axillary adenopathy: None. IMPRESSION: No mammographic evidence of malignancy. Annual screening is recommended unless otherwise clinically indicated. ASSESSMENT: BI-RADS Category 1: Negative
== END ==
PROVIDERS: PCP Nurse Practitioner Family; Visit Provider Surgery
DX: Z12.31 Encounter for screening mammogram for malignant neoplasm of breast (principal)
CPT/HCPCS: 77063; 77067

== ENCOUNTER → 2021-09-20 13:14 | Outpatient (CLI) | payer OTHER, SELFPAY ==
--- NOTE | 2021-09-20 13:46 | US_ITS ---
PROCEDURE INFORMATION: Exam: US Left Breast, Complete Exam date and time: 09/20/2021 1:46 PM Age: 55 years old Clinical indication: Follow-up for cystic change TECHNIQUE: Imaging protocol: Complete ultrasound of all four quadrants of the Left breast and the retroareolar regions, including ultrasound of the axilla when performed. COMPARISON: US BREAST LT COMPLETE 04/09/2021 1:42 PM FINDINGS: Breast: Sonographic images of the left breast including the retroareolar region, all 4 quadrants and the axilla do not demonstrate any solid masses. Few scattered subcentimeter simple and minimally debris-filled cysts are noted. No architectural distortion or acoustical shadowing. No skin thickening or axillary adenopathy. IMPRESSION: No sonographic evidence of malignancy. Annual mammographic screening is recommended unless otherwise clinically indicated. ASSESSMENT: BI-RADS Category 2: Benign
== END ==
PROVIDERS: PCP Nurse Practitioner Family; Visit Provider Surgery
DX: N63.20 Unspecified lump in the left breast, unspecified quadrant (principal)
CPT/HCPCS: 76641

== ENCOUNTER 2021-10-02 15:44 | Emergency (ER) | payer OTHER, SELFPAY ==
[2021-10-02 15:45] VITALS: BP 143/97; PULSE 85; RESP 18; TEMP 36.7; O2SAT 96; BMI 29.2
--- NOTE | 2021-10-02 15:56 | HMH.EDUTC ---
[facility] [place] Disposition Clinical Impression: Viral syndrome, Exposure to COVID-19 virus, Bronchitis Disposition: Home, Self-Care Condition on Discharge: Good Instructions: Preventing the Spread of Coronavirus Discharge Instructions, DI for COVID-19 (Suspected or Confirmed ) Additional Instructions: Drink plenty of fluids. Take tylenol or ibuprofen for pain or fever. Take the medications as directed. Follow up with your regular doctor. GO TO THE ER FOR ANY WORSENING SYMPTOMS Quarantine until you know the results of your covid-19 test. Notify your school or workplace of your results and follow their instructions regarding return to work/school. Prescriptions: Promethazine/Dextromethorphan [Promethazine-Dm Syrup] 5 ml PO Q6HP PRN #240 ml PRN Reason: Cough Transmission Status: Pending to [facility] methylPREDNISolone [Medrol] 4 mg PO DIRECTED 6 Days #21 packet Transmission Status: Pending to [facility] guaiFENesin [Mucinex 600mg tablet] 1 - 2 tab PO BIDP PRN #30 tab PRN Reason: Congestion Transmission Status: Pending to [facility] Azithromycin [Z-Romain 250mg Tab*] 250 mg PO UD DOSE PK #6 tab Transmission Status: Pending to [facility] Referrals: Zandra Dallas APRN [Primary Care Provider] - Forms: Work/School Release Time of Disposition: 16:34 Medical Decision Making - Medical Records Medical records reviewed: No: I reviewed the patient's medical records. - Ashok Inquiry Pt receiving controlled substance: No Vital Signs: 10/02/21 15:45 Temperature 98.0 F Temperature Source Oral Pulse Rate [Right Brachial] 85 Respiratory Rate 18 Blood Pressure [Right Arm] 143/97 H Blood Pressure Mean [Right Arm] 112 Blood Pressure Source [Right Arm] Automatic Cuff Blood Pressure Position [Right Arm] Sitting 02 Sat by Pulse Oximetry 96 Oxygen Delivery Method Room Air - Lab Data Lab results reviewed: Yes: I reviewed the patient's lab results. [facility] [place] HPI - General Stated complaint: exposed,KEARNS,wEAKNESS,cONGESTION Time Seen by Provider: 10/02/21 16:29 - History of Present Illness Provider Complaint: She states that she has been feeling bad for the past 1 day. She is having body aches, chills, low grade fever, nonproductive cough, and chest congestion. She has not been vaccinated against covid-19. - Related Data Previous Rx's Medication Instructions Recorded Azithromycin [Z-Romain 250mg Tab*] 250 mg PO UD DOSE PK #6 tab 10/02/21 Promethazine/Dextromethorphan 5 ml PO Q6HP PRN #240 ml 10/02/21 [Promethazine-Dm Syrup] guaiFENesin [Mucinex 600mg tablet] 1 - 2 tab PO BIDP PRN #30 tab 10/02/21 methylPREDNISolone [Medrol] 4 mg PO DIRECTED 6 Days #21 10/02/21 packet Allergies Allergy/AdvReac Type Severity Reaction Status Date / Time nickel [NICKEL] Allergy Unknown I-RASH Verified 09/26/21 14:56 silver Allergy Unknown Blister Verified 09/26/21 14:56 [From Tegaderm AG Mesh] [facility] History - Hepatitis A Screen Attestation statement:: This patient has been screened for Hepatitis A risk factors. I have reviewed the patient's past medical history: Yes Medical History: Reports:: Gastroesophageal Reflux Disease(GERD), Hyperlipidemia, Urinary Tract Infection Denies:: Cancer, Diabetes Mellitus Type 1, Diabetes Mellitus Type 2, Internal Pacemaker, MRSA, Seizures Other Medical History: Reports: Hypothyroidism, Thyroid Disease Laterality Cases: Right: Breast Biopsy Other Surgeries: Yes: Colonoscopy, Dilation and Curettage, Other. No: Pacemaker Amputation: No Fractures: No - Social History Smoking Status: Never smoker Alcohol Intake: never Substance Use Type: denies use Occupational Status: other Housing: house Household Members: spouse Family Hx:: No significant family history ROS Obtained: Yes All systems reviewed & no additional complaints - Constitutional Constitutional: Reports as per HPI - Eyes Eyes: Denies eye discharge - ENT Ears, Nose,
[2021-10-02 16:36] VITALS: BP 143/97; PULSE 85; RESP 18; TEMP 36.7; O2SAT 96
[2021-10-02 18:13] LABS: Strep Scrn Group A (Rapid) Negative (Negative)
[2021-10-02 18:14] LABS: Adenovirus,PCR Not Detected (NotDetected); Coronavirus 229E Not Detected (NotDetected); Coronavirus NL63 Not Detected (NotDetected); Coronavirus OC43 Not Detected (NotDetected); Coronovirus HKU1,PCR Not Detected (NotDetected); Human Metapneumovirus Not Detected (NotDetected); Influenza A, PCR Not Detected (NotDetected); Influenza AH1, 2009 Not Detected (NotDetected); Influenza AH1, PCR Not Detected (NotDetected); Influenza AH3,PCR Not Detected (NotDetected); Rhinovirus/Enterovirus Not Detected (NotDetected)
[2021-10-02 18:15] LABS: Bordetella Pertussis Not Detected (NotDetected); Chlamydophila Pneumoniae, PCR Not Detected (NotDetected); Influenza B, PCR Not Detected (NotDetected); Mycoplasma Pneumoniae, PCR Not Detected (NotDetected); Parainfluenza 1, PCR Not Detected (NotDetected); Parainfluenza 2, PCR Not Detected (NotDetected); Parainfluenza 3, PCR Not Detected (NotDetected); Parainfluenza 4, PCR Not Detected (NotDetected); Respiratory Syncytial Virus Not Detected (NotDetected)
[2021-10-02 20:18] LABS: Coronavirus 19, PCR Detected (NotDetected)
== END 2021-10-02 16:42 | disposition home or self-care (01) ==
PROVIDERS: Emergency Provider Nurse Practitioner Family; PCP Nurse Practitioner Family
DX: U07.1 COVID-19 (principal); J20.9 Acute bronchitis, unspecified; K21.9 Gastro-esophageal reflux disease without esophagitis; E78.5 Hyperlipidemia, unspecified; E03.9 Hypothyroidism, unspecified; Z79.899 Other long term (current) drug therapy
CPT/HCPCS: 87430; 87581; 87632; 87798; 99203; C9803; G0463; U0003; U0005

== ENCOUNTER 2021-10-09 16:36 | Emergency (ER) | payer OTHER, SELFPAY ==
[2021-10-09 17:10] VITALS: BP 125/81; PULSE 94; RESP 18; TEMP 36.9; O2SAT 96; BMI 30.1
--- NOTE | 2021-10-09 17:35 | XR_ITS ---
PROCEDURE INFORMATION: Exam: XR Chest Exam date and time: 10/09/2021 5:35 PM Age: 55 years old Clinical indication: Cough and shortness of breath; Patient HX: Cough, SOA, HX covid 8 days ago TECHNIQUE: Imaging protocol: XR of the chest. Views: 2 views. COMPARISON: CR XR CHEST 2V 04/24/2020 2:41 PM FINDINGS: Lungs: Hyperexpanded lungs without infiltrate. Pleural spaces: Unremarkable. No pleural effusion. No pneumothorax. Heart/Mediastinum: Unremarkable. No cardiomegaly. Bones/joints: Unremarkable. Soft tissues: Surgical changes in the right breast. IMPRESSION: Hyperexpanded lungs without infiltrate.
--- NOTE | 2021-10-09 17:43 | HMH.EDUTC ---
[facility] [place] Disposition Clinical Impression: Muscle spasm Otitis media Qualifiers: Otitis media type: unspecified Laterality: left Qualified Code(s): H66.92 - Otitis media, unspecified, left ear Disposition: Home, Self-Care Condition on Discharge: Good Instructions: Middle Ear Infection, Acute Bronchitis Additional Instructions: ? Start antibiotic today. Be sure to complete entire prescription even if feeling better ? Monitor temp. Tylenol every 4 hours as needed and / or ibuprofen every 6 hours as needed ( As long as your primary care physician has told you that it ok to take both. For fever/aches/pains ER if no less than 101 despite Tylenol or Motrin ? Humidifier/vaporizer or hot steamy shower ? Inhaler every 4-6 hours as needed like we discussed. If unsure how to use it, ask pharmacist to demonstrate how. Should help open airways and improve cough, wheezing, and shortness of breath Tylenol every 4 hours as needed for pain *moist heat every 20 minutes 3-4 times a day to affected area *Muscle relaxer every 12 hours as needed for muscle spasms but remember, it WILL cause drowsiness You cannot take it and drive, operate machinery or care for small children. Over the counter muscle rubs may help with muscle spasm *Keep this area active, no movement leads to more stiffness, However take it easy and avoid heavy lifting pushing or pulling *Follow up with you family doctor if no improvement for further treatment Follow up IMMEDIATELY for new or worsening of symptoms OR no noticeable improvement over the next 48-72 hours. 911 immediately for any life threatening symptoms such as chest pain or difficulty breathing Prescriptions: Albuterol Sulfate [Proventil-HFA 90mcg/puff Inh] 1 - 2 puffs IH Q6HP PRN #1 each PRN Reason: Shortness Of Breath Transmission Status: Received by [facility] methocarbamoL [Methocarbamol 500mg Tablet] 500 mg PO BID PRN #10 tab PRN Reason: Muscle Spasm Transmission Status: Received by [facility] Cefdinir [Omnicef 300mg Capsule] 300 mg PO BID #20 cap Transmission Status: Received by [facility] Referrals: Zandra Dallas APRN [Primary Care Provider] - As needed Time of Disposition: 18:16 Medical Decision Making - Ashok Inquiry Pt receiving controlled substance: No Ashok was queried for this patient: No Vital Signs: 10/09/21 17:10 10/09/21 18:21 Temperature 98.5 F 98.5 F Temperature Source Oral Pulse Rate 94 H Pulse Rate [Right Brachial] 94 H Respiratory Rate 18 18 Blood Pressure 125/81 Blood Pressure [Right Arm] 125/81 Blood Pressure Mean [Right Arm] 95 Blood Pressure Source [Right Arm] Automatic Cuff Blood Pressure Position [Right Arm] Sitting 02 Sat by Pulse Oximetry 96 - Radiology Data #1 Image(s): Chest Image Reviewed: Yes I have reviewed radiologist's interpretation IMPRESSION: Hyperexpanded lungs without infiltrate. [facility] [place] HPI - General Stated complaint: L ear pain, radiating down neck/shoulder Time Seen by Provider: 10/09/21 17:43 Mode of Arrival: Ambulatory Source of Information: Patient Limitations: No Limitations Description of Symptoms (Recalled from Triage Doc. by RN): PATIENT C/O LEFT EAR PAIN THAT RADIATES DOWN NECK INTO SHOULDER, FATIGUE, AND SOA THAT STARTED TODAY HEENT Symptoms (Recalled from RN notes): Yes Resp Symptoms (Recalled from RN notes): Yes Skin Symptoms (Recalled from RN notes): No MS Symptoms (Recalled from RN notes): No Functional Status (Recalled from RN notes): WNL - History of Present Illness Provider Complaint: Patient puerto rican speaking used hospital ipad interpretur to communicate with patient, Patient states that she was dx with COVID about 8 days ago States that yesterday she started having muscle spasms in her shouders and upper back area and in left side of neck when she turns her head, having sharp pain in left ear that has got worse over the last 3-4 days and worried she may have infection in her lungs
[2021-10-09 18:21] VITALS: BP 125/81; PULSE 94; RESP 18; TEMP 36.9; O2SAT 96
== END 2021-10-09 18:27 | disposition home or self-care (01) ==
PROVIDERS: Emergency Provider Nurse Practitioner; PCP Nurse Practitioner Family
DX: H66.92 Otitis media, unspecified, left ear (principal); Z86.16 Personal history of COVID-19; M62.838 Other muscle spasm
CPT/HCPCS: 71046; 99202; G0463

== ENCOUNTER 2022-01-10 17:03 | Emergency (ER) | payer OTHER, SELFPAY ==
[2022-01-10 17:45] VITALS: BP 132/74; PULSE 78; RESP 18; TEMP 36.8; O2SAT 99; BMI 23.8
--- NOTE | 2022-01-10 18:10 | HMH.EDUTC ---
[facility] [place] Clinical Impression: UTI (urinary tract infection) Qualifiers: Urinary tract infection type: site unspecified Hematuria presence: with hematuria Qualified Code(s): N39.0 - Urinary tract infection, site not specified Disposition: Home, Self-Care Condition on Discharge: Good Instructions: DI for Urinary Tract Infection (UTI) Additional Instructions: *Increase fluids. Water not Soda or Tea *Start antibiotic immediately and be sure to take as ordered for the FULL length of time although you should start to see improvement over the next 48 hours *Pyridium as needed Remember this medication will turn your urine [place]. This is normal but it will stain what ever it gets on *You should not use Pyridium for more than 48 hours. If so , follow up with your primary physician to review urine culture and ensure that antibiotic is adequate for infection *Be SURE to follow up anytime for new or worsening symptoms with your family doctor. AND in 48 hours for urine culture results with your family doctor, if you do not have a doctor then you may call back to the [facility] for urine culture results and further treatment. We do recommend that you choose and establish care with a Primary Care Physician. AND follow up with them in 10-14 days to repeat UA to ensure infection is resolved and blood no longer present *Be sure to let your PCP know that we sent urine cultures from the [facility] so they can follow up to ensure that you area the on the correct antibiotic Call your doctor office and make appointment for 48 hours (2 days from today) to follow up and get the results of your urine culture and further treatment Prescriptions: Cefdinir [Omnicef 300mg Capsule] 300 mg PO BID 7 Days #14 cap Transmission Status: Pending to [facility] Phenazopyridine HCl [Pyridium 200mg Tablet] 200 pow PO TID #6 tab Transmission Status: Pending to [facility] Referrals: Zandra Dallas APRN [Primary Care Provider] - As needed Time of Disposition: 18:21 Medical Decision Making - Ashok Inquiry Pt receiving controlled substance: No Ashok was queried for this patient: No Vital Signs: 01/10/22 17:45 Temperature 98.2 F Temperature Source Oral Pulse Rate [Right Brachial] 78 Respiratory Rate 18 Blood Pressure [Right Arm] 132/74 Blood Pressure Mean [Right Arm] 93 Blood Pressure Source [Right Arm] Automatic Cuff Blood Pressure Position [Right Arm] Sitting 02 Sat by Pulse Oximetry 99 Oxygen Delivery Method Room Air - Lab Data Lab results reviewed: Yes: I reviewed the patient's lab results. Lab Results 01/10/22 17:55: Urine Color Yellow, Urine Appearance Clear, Urine pH 7.5, Ur Specific [place] 1.020, Urine Protein Negative, Urine Glucose (UA) Negative, Urine Ketones Negative, Urine Blood Trace, Urine Nitrate Negative, Urine Bilirubin Negative, Urine Urobilinogen 0.2, Ur Leukocyte Esterase Trace [facility] [place] HPI - General Stated complaint: UTI infection Time Seen by Provider: 01/10/22 18:10 Mode of Arrival: Ambulatory Source of Information: Patient Limitations: No Limitations Description of Symptoms (Recalled from Triage Doc. by RN): PATIENT C/O BURNING WITH URINATION, URINARY FREQUENCY, AND LOWER BACK/PELVIC PAIN X 3 DAYS HEENT Symptoms (Recalled from RN notes): No Resp Symptoms (Recalled from RN notes): No Skin Symptoms (Recalled from RN notes): No MS Symptoms (Recalled from RN notes): No Functional Status (Recalled from RN notes): WNL - History of Present Illness Provider Complaint: Patient states that she has been having burning with urination, frequency and urgency States that she is also feeling achy in her lower back States that she gets UTI often and feels like she may have one now so she came in to get checked - Related Data Previous Rx's Medication Instructions Recorded Azithromycin [Z-Romain 250mg Tab*] 250 mg PO UD DOSE PK #6 tab 10/02/21 Promethazine/Dextromethorphan 5 ml PO Q6HP PRN #240 ml 10/02/21 [Promethazine-Dm
[2022-01-10 18:12] LABS: Apearance,Urine Clear (Clear); Color,Urine Yellow (Yellow); PH,Urine 7.5 (5.0-8.5)
[2022-01-10 18:13] LABS: Bilirubin,Urine Negative (Negative); Blood, Urine Trace (Negative); Glucose,Urine (UA) Negative (Negative); Ketones,Urine Negative (Negative); Protein,Urine Negative (Negative); UTC Leukocyte Esterase,Urine Trace (Negative); UTC Nitrate,Urine Negative (Negative); Urobilinogen,Urine 0.2 EU/dl (0.2)
[2022-01-10 18:22] VITALS: BP 132/74; PULSE 78; RESP 18; TEMP 36.8; O2SAT 99
== END 2022-01-10 18:29 | disposition home or self-care (01) ==
PROVIDERS: Emergency Provider Nurse Practitioner; PCP Nurse Practitioner Family
DX: N39.0 Urinary tract infection, site not specified (principal); K21.9 Gastro-esophageal reflux disease without esophagitis; E78.5 Hyperlipidemia, unspecified; E03.9 Hypothyroidism, unspecified
CPT/HCPCS: 81003; 99212; G0463

== ENCOUNTER 2022-02-02 19:36 | Emergency (ER) | payer OTHER, SELFPAY ==
[2022-02-02 20:15] VITALS: BP 157/87; PULSE 80; RESP 18; TEMP 36.7; O2SAT 100; BMI 27.3
--- NOTE | 2022-02-02 20:26 | XR_ITS ---
PROCEDURE INFORMATION: Exam: XR Chest Exam date and time: 02/02/2022 8:32 PM Age: 56 years old Clinical indication: Pain; Chest pressure; Additional info: Asthma attack TECHNIQUE: Imaging protocol: XR of the chest. Views: 2 views. COMPARISON: CR XR CHEST 2V 10/09/2021 5:36 PM FINDINGS: Tubes, catheters and devices: Surgical clips project over the right chest wall. Lungs: Mild linear subsegmental atelectasis or scarring in the left lower lung. No consolidation. Pleural spaces: No pleural effusion. No pneumothorax. Heart/Mediastinum: Normal heart size. Bones/joints: Mild spondylosis is present. IMPRESSION: Mild left basilar subsegmental atelectasis or scarring. Otherwise, no acute finding.
--- NOTE | 2022-02-02 20:52 | HMH.EDUTC ---
[facility] [place] Disposition Clinical Impression: Asthma exacerbation Qualifiers: Asthma severity: mild Asthma persistence: intermittent Qualified Code(s): J45.21 - Mild intermittent asthma with (acute) exacerbation Disposition: Home, Self-Care Condition on Discharge: Good Instructions: DI for Asthma -- Adult Additional Instructions: Use albuterol inhaler every 4 hours as needed tonight. We have given a steroid injection tonight - start oral steroids (at pharmacy) tomorrow. Return to ER if shortness of breath, inability to get a deep breath worsens Lives with daughter, who translated for us, and will keep an eye on her tonight Prescriptions: Fluticasone/Salmeterol [Advair 250/50mcg Diskus] 1 inh IH BID 30 Days #1 each Transmission Status: Pending to [id number] methylPREDNISolone [Medrol 4mg tab] 4 mg PO DIRECTED #21 tab Transmission Status: Pending to [id number] Referrals: Zandra Dallas APRN [Primary Care Provider] - Time of Disposition: 21:04 Medical Decision Making - Ashok Inquiry Pt receiving controlled substance: No Vital Signs: 02/02/22 20:15 Temperature 98.1 F Temperature Source Oral Pulse Rate [Left Brachial] 80 Respiratory Rate 18 Blood Pressure [Left Arm] 157/87 H Blood Pressure Mean [Left Arm] 110 Blood Pressure Source [Left Arm] Automatic Cuff Blood Pressure Position [Left Arm] Sitting 02 Sat by Pulse Oximetry 100 Oxygen Delivery Method Room Air Orders (Tests/Meds): ORDERS Category Date Time Status Chest XR 2 view (NOT portable) [XR chest 2V] Stat Exams 02/02/22 20:26 Taken Medical Decision Narrative: Daughter translated for [facility] HPI - General Stated complaint: asthma, coughing,shaky Time Seen by Provider: 02/02/22 20:53 Mode of Arrival: Ambulatory Source of Information: Patient, Relative Limitations: No Limitations Description of Symptoms (Recalled from Triage Doc. by RN): FAMILY REPORTS THAT PATIENT HAD AN ASTHMA ATTACK TODAY WHICH SHE TOOK ALBUTEROL FOR, AND SINCE THEN HER CHEST HAS FELT TIGHT AND SHE HAS BEEN JITTERY HEENT Symptoms (Recalled from RN notes): No Resp Symptoms (Recalled from RN notes): Yes Skin Symptoms (Recalled from RN notes): No MS Symptoms (Recalled from RN notes): No Functional Status (Recalled from RN notes): WNL - History of Present Illness Provider Complaint: Patient has a history of mild intermittent asthma. She was gardening today, when a strong wind blew into her face and triggered an asthma attack. She used her rescue inhaler, but doesn't feel like it helped as much as it has in the past. She has been jittery and her chest feels tight. Onset (ago): hour(s) (6) Location: chest Relieving factors: none Exacerbating factors: none Associated symptoms: shortness of breath Treatments prior to arrival: other (Albuterol) - Related Data Previous Rx's Medication Instructions Recorded Azithromycin [Z-Romain 250mg Tab*] 250 mg PO UD DOSE PK #6 tab 10/02/21 Promethazine/Dextromethorphan 5 ml PO Q6HP PRN #240 ml 10/02/21 [Promethazine-Dm Syrup] guaiFENesin [Mucinex 600mg tablet] 1 - 2 tab PO BIDP PRN #30 tab 10/02/21 methylPREDNISolone [Medrol] 4 mg PO DIRECTED 6 Days #21 10/02/21 packet Albuterol Sulfate [Proventil-HFA 1 - 2 puffs IH Q6HP PRN #1 each 10/09/21 90mcg/puff Inh] Cefdinir [Omnicef 300mg Capsule] 300 mg PO BID #20 cap 10/09/21 methocarbamoL [Methocarbamol 500mg 500 mg PO BID PRN #10 tab 10/09/21 Tablet] Cefdinir [Omnicef 300mg Capsule] 300 mg PO BID 7 Days #14 cap 01/10/22 Phenazopyridine HCl [Pyridium 200 pow PO TID #6 tab 01/10/22 200mg Tablet] Fluticasone/Salmeterol [Advair 1 inh IH BID 30 Days #1 each 02/02/22 250/50mcg Diskus] methylPREDNISolone [Medrol 4mg 4 mg PO DIRECTED #21 tab 02/02/22 tab] Allergies Allergy/AdvReac Type Severity Reaction Status Date / Time nickel [NICKEL] Allergy Unknown I-RASH Verified 09/26/21 14:56 silver Allergy Unknown Blister Ve
[2022-02-02 21:05] VITALS: BP 157/87; PULSE 80; RESP 18; TEMP 36.7; O2SAT 100
== END 2022-02-02 21:12 | disposition home or self-care (01) ==
PROVIDERS: Emergency Provider Physician Assistant; PCP Nurse Practitioner Family
DX: J45.21 Mild intermittent asthma with (acute) exacerbation (principal); K21.9 Gastro-esophageal reflux disease without esophagitis; E78.5 Hyperlipidemia, unspecified; E03.9 Hypothyroidism, unspecified
CPT/HCPCS: 71046; 96372; 99213; G0463; J1040

== ENCOUNTER 2022-03-29 16:20 | Emergency (ER) | payer OTHER, SELFPAY ==
[2022-03-29 16:23] VITALS: BP 136/86; PULSE 81; RESP 16; TEMP 36.9; O2SAT 98; BMI 27.3
--- NOTE | 2022-03-29 16:35 | ECG_ITS ---
APPROVED REPORT Exam: Resting ECG HR:78 bpm ECG Measurements Heart Rate 78 AXES MN 153 P 22 QRSd 112 QRS 20 QT 365 T 40 QTc 399 Conclusion SINUS RHYTHM LOW QRS VOLTAGE IN PRECORDIAL LEADS [QRS DEFLECTION < 1.0 mV IN CHEST LEADS] MODERATE INTRAVENTRICULAR CONDUCTION DELAY [110+ ms QRS DURATION] BORDERLINE ECG UNCONFIRMED REPORT Electronically signed by : Jean Pierre Samuels MD 03/30/2022 21:39:53
--- NOTE | 2022-03-29 16:43 | PC.NURSE ---
Went in to do an EKG on patient; call light within reach
--- NOTE | 2022-03-29 16:59 | XR_ITS ---
PROCEDURE INFORMATION: Exam: XR Chest Exam date and time: 03/29/2022 5:20 PM Age: 56 years old Clinical indication: Chest wall pain; Additional info: Fullness in chest and shoulders TECHNIQUE: Imaging protocol: Radiologic exam of the chest. Views: 1 view. COMPARISON: CR XR CHEST 2V 02/02/2022 8:32 PM FINDINGS: Tubes, catheters and devices: Surgical clips overlie the right chest wall. Lungs: No focal pneumonia or pneumothorax. Pleural spaces: There are no pleural effusions present. Heart/Mediastinum: Unremarkable. No cardiomegaly. Bones/joints: Unremarkable. IMPRESSION: No focal pneumonia or pneumothorax.
[2022-03-29 17:00] VITALS: BP 129/81; PULSE 79; RESP 15; O2SAT 98
--- NOTE | 2022-03-29 17:05 | PC.NURSE ---
Notified rad of CXR
[2022-03-29 17:09] LABS: Basophils # 0.1 K/mm3 (0-0.2); Basophils % 0.7 % (0.1-2.0); Eosinophils # 0.1 K/mm3 (0.0-0.4); Eosinophils % 1.4 % (0.1-12.0); Hematocrit 39.1 % (37.0-47.0); Hemoglobin 12.9 g/dL (12.2-16.2); Lymphocytes # 3.8 K/mm3 (0.7-4.5); Lymphocytes % 37.1 % (10-50); Mean Corpuscular Hemoglobin 30.7 pg (27.0-31.2); Mean Corpuscular Volume 93.1 fl (81-99); Mean Platelet Volume 8.9 fl (7.4-10.4); Monocytes # 0.6 K/mm3 (0.1-1.0); Monocytes % 6.1 % (1.7-9.3); Neutrophils # 5.6 K/mm3 (1.8-7.8); Neutrophils % 54.7 % (37.0-80.0); Platelet Count 231 K/mm3 (142-424); Red Blood Count 4.21 M/mm3 (4.20-5.40); Red Cell Distribution Width 13.3 % (11.5-17.5); White Blood Count 10.2 K/mm3 (4.8-10.8)
[2022-03-29 17:11] LABS: Alanine Aminotransferase 39 U/L (12-78); Albumin Level 4.2 g/dl (3.5-5.0); Albumin/Globulin Ratio 1.3 (1.1-1.8); Alkaline Phosphatase 62 U/L (38-126); Aspartate Amino Transferase 30 U/L (14-36); Blood Urea Nitrogen 16 mg/dl (7-17); Calcium 9.2 mg/dl (8.4-10.2); Carbon Dioxide 33 mmol/L (22.0-30.0); Chloride 96 mmol/L (98-107); Creatinine Clearance Estimated 107 mL/min (50-200); Estimated Glomerular Filt Rate 104 ml/min (>60); GFR (African American) 126 ML/MIN (>60); Globulin 3.3 g/dL (1.3-3.2); Glucose 94 mg/dl (74-100); Sodium 137 mmol/L (136-145); Total Protein,Serum 7.5 g/dl (6.3-8.2)
[2022-03-29 17:15] LABS: Bilirubin,Total < 0.1 mg/dl (0.2-1.3)
[2022-03-29 17:26] LABS: Troponin I < 0.01 ng/ml (0.00-0.034)
[2022-03-29 17:30] VITALS: BP 140/84; PULSE 74; RESP 17; O2SAT 100
--- NOTE | 2022-03-29 17:30 | HMH.EDGENADL ---
ED Disposition Clinical Impression: Atypical chest pain Disposition: Home, Self-Care Condition on Discharge: Good Instructions: DI for Atypical Chest Pain Additional Instructions: Call your primary care doctor on Friday to schedule follow-up appointment for further evaluation of chest pain. Also called cardiology, Dr. Low, on Friday to make appointment for further evaluation of chest pain. Additional instructions for CHEST PAIN: Return immediately if worsening chest pain, vomiting, shortness of breath, fever, coughing of blood. Referrals: Zandra Dallas APRN [Primary Care Provider] - Zeeshan Low MD [Staff Physician] - - Critical Care Critical Care Time: No Attestation: On 03/29/22, the high probability of a clinically significant, sudden or life threatening deterioration of the following system(s) required my full and direct attention, intervention and personal management. The time I documented below is in addition to time spent performing reported procedures but includes the following listed in this critical care notation. Medical Decision Making - Ashok Inquiry Pt receiving controlled substance: No Vital Signs: 03/29/22 16:23 03/29/22 17:00 03/29/22 17:30 Temperature 98.4 F Temperature Source Oral Pulse Rate 79 74 Pulse Rate [Right Radial] 81 Respiratory Rate 16 15 17 Blood Pressure 129/81 140/84 Blood Pressure [Right Arm] 136/86 Blood Pressure Mean 97 97 Blood Pressure Mean [Right Arm] 102 Blood Pressure Source [Right Arm] Automatic Cuff Blood Pressure Position [Right Arm] Sitting 02 Sat by Pulse Oximetry 98 98 100 Oxygen Delivery Method Room Air Room Air Room Air 03/29/22 18:00 03/29/22 18:30 Temperature Temperature Source Pulse Rate 78 77 Pulse Rate [Right Radial] Respiratory Rate 15 17 Blood Pressure 144/88 H 131/87 Blood Pressure [Right Arm] Blood Pressure Mean 103 109 Blood Pressure Mean [Right Arm] Blood Pressure Source [Right Arm] Blood Pressure Position [Right Arm] 02 Sat by Pulse Oximetry 98 98 Oxygen Delivery Method - Lab Data Lab Results 03/29/22 16:52: WBC 10.2, RBC 4.21, Hgb 12.9, Hct 39.1, MCV 93.1, MCH 30.7, MCHC 33.0, RDW 13.3, Plt Count 231, MPV 8.9, Neut % (Auto) 54.7, Lymph % (Auto) 37.1, [place] % (Auto) 6.1, Eos % (Auto) 1.4, Baso % (Auto) 0.7, Neut # (Auto) 5.6, Lymph # (Auto) 3.8, [place] # (Auto) 0.6, Eos # (Auto) 0.1, Baso # (Auto) 0.1 03/29/22 16:52: Sodium 137, Potassium 4.0, Chloride 96 L, Carbon Dioxide 33 H, Anion Gap 12.0, BUN 16, Creatinine 0.60, Estimated Creat Clear 107, Estimated GFR 104, Est GFR ( Amer) 126, Glucose 94, Calcium 9.2, Total Bilirubin < 0.1 L, AST 30, ALT 39, Alkaline Phosphatase 62, Troponin I < 0.01, Total Protein 7.5, Albumin 4.2, Globulin 3.3 H, Albumin/Globulin Ratio 1.3 Result diagrams: 03/29/22 16:52 03/29/22 16:52 Orders (Tests/Meds): ED MEDICATIONS Generic Name Dose Route Start Last Admin Trade Name Freq PRN Reason Stop Dose Admin Sodium Chloride 10 ml 03/29/22 16:59 Sodium Chloride 0.9% 10ml Flush Syringe IV 04/28/22 16:58 NEEDED PRN Maintain IV Site ORDERS Category Date Time Status Troponin I Q3H Lab 03/29/22 20:00 Ordered Troponin I Q3H Lab 03/29/22 23:00 Ordered - Radiology Data #1 Image(s): Chest Image Reviewed: Yes I reviewed the patient's radiology image, Yes I have reviewed radiologist's interpretation Ordering Physician: Mario Chauhan MD Date of Service: 03/29/22 Procedure(s): XR chest portable Accession Number(s): [id number] cc: Sushant Herbert DO; Zandra Dallas FAMILY LIVING EDUCATOR~ PROCEDURE INFORMATION: Exam: XR Chest Exam date and time: 03/29/2022 5:20 PM Age: 56 years old Clinical indication: Chest wall pain; Additional info: Fullness in chest and shoulders TECHNIQUE: Imaging protocol: Radiologic exam of the chest. Views: 1 view. COMPARISON: CR XR CHEST 2V 02/02/2022 8:32 PM ALLY
--- NOTE | 2022-03-29 17:36 | PC.NURSE ---
MD at bedside assessing pt
[2022-03-29 18:00] VITALS: BP 144/88; PULSE 78; RESP 15; O2SAT 98
[2022-03-29 18:30] VITALS: BP 131/87; PULSE 77; RESP 17; O2SAT 98
[2022-03-29 20:49] LABS: Troponin I < 0.01 ng/ml (0.00-0.034)
[2022-03-29 21:09] VITALS: BP 130/85; PULSE 76; RESP 18; TEMP 36.8; O2SAT 98
== END 2022-03-29 21:15 | disposition home or self-care (01) ==
PROVIDERS: Emergency Provider Emergency Medicine; PCP Nurse Practitioner Family
DX: R07.9 Chest pain, unspecified (principal); N39.0 Urinary tract infection, site not specified; M25.519 Pain in unspecified shoulder; H92.02 Otalgia, left ear; R06.02 Shortness of breath; K21.9 Gastro-esophageal reflux disease without esophagitis; E78.5 Hyperlipidemia, unspecified; E03.9 Hypothyroidism, unspecified; Z88.8 Allergy status to other drugs, medicaments and biological substances
CPT/HCPCS: 71045; 80053; 84484; 85025; 93005; 99284

== ENCOUNTER → 2022-04-23 11:46 | Outpatient (CLI) | payer OTHER, SELFPAY ==
--- NOTE | 2022-04-23 11:47 | CA_ITS ---
APPROVED REPORT EXAM: Comprehensive 2D, Doppler, and color-flow Echocardiogram Voip Network Engineer: Ameena Mcmillan RDCS Ht: 5 ft 0 in Wt: 143lbs BSA: 1.62 BP: 126/83 mmHg Indications: CP,SOA,HLP 2D Dimensions LVOT 1.94 cm (M/F) 1.5-2.5 M-Mode Dimensions RVDd 1.75 cm (0.9-2.6) LA Diam 2.68 cm (1.9-4.0) LVDd 4.63 cm (3.5-5.7) Ao Diam 2.62 cm (2.0-3.7) LVDs 3.24 cm (3.5-5.7) IVSd 0.70 cm (0.6-1.1) PWd 0.82 cm (0.6-1.1) EF (Teich) 57.30% FS 30.00% EDV (Teich) 98.80 mL TAPSE 2.09 (<1.7) ESV (Teich) 42.20 mL LV Diastology E Decel Time 203.00 (160-240 msec) E/A Ratio 1.1 MED E' 9.10 (< 7 cm/sec) E'/MED E' Ratio 8.44 (>14) LAT E' 9.10 (<10 cm/sec) E/LAT E' Ratio 8.44 (>14) Mitral Valve MV E Max Rios. 77.00 (40-130 cm/s) MV A Velocity 71.00 (40-130 cm/s) E/A Ratio 1.08 MV Decel. Time 203.00 (160-240 ms) MV PHT 60.00 ms Tricuspid Valve TR P. Velocity 239.00 cm/s RAP Estimate 10.00 mmHg RVSP 32.80 mmHg Left Ventricle Technically difficult study, endocardial surfaces are poorly visualized, left atrium is normal size, left ventricle is normal size, there is no concentric left ventricular hypertrophy, estimated ejection fraction 55% with no regional wall motion abnormality, diastolic parameters are within normal range. Right Ventricle Right atrium and right ventricle are normal size and contractility. Aortic Valve Aortic valve is grossly normal there is no aortic stenosis or aortic insufficiency. Mitral Valve Mitral valve is grossly normal, there is trace mitral regurgitation. Tricuspid Valve Tricuspid valve grossly normal, there is trace tricuspid regurgitation, tricuspid regurgitation jet velocity is inadequate for calculation of the right ventricular systolic pressure. Pulmonic Valve Pulmonic valve is poorly visualized. Great Vessels Aortic root is normal size. Inferior vena cava is poorly visualized. Pericardium No significant pericardial effusion noted. Conclusion 1. Technically difficult study because of the patient factors and poor acoustic windows. Left ventricular size preserved ventricular systolic function, estimated ejection fraction 55% with no regional wall motion abnormality, diastolic parameters are within normal range. 2. Trace mitral and tricuspid regurgitation. 3. No significant pericardial effusion. 4. Inferior vena cava is poorly visualized. Electronically signed by : Riley Orellana MD 04/23/2022 20:42:06
--- NOTE | 2022-04-23 11:50 | NM_ITS ---
APPROVED REPORT Exam: Nuclear Stress Test Indication: Chest pain, SOB, Syncope, Family history Patient Location: Outpatient Stress Tech: Tiffany Trujillo [place] Tech:Taylor Rubi, ARRT, RT (R)(N) Ht: 5 ft 0 in Wt: 144 lbs Bra Size: B HR: 84 bpm BP: 139/83 mmHg BSA: 1.62 m2 TID: 1.24 History: Chest pain, SOB, Syncope, Family history Procedure: Patient exercised on Lj protocol 6:00 minutes and sec, resting heart rate 84 bpm, resting blood pressure 139/83 mmHg, with exercise maximum heart rate achived was 149 bpm which is 90 % of the maximum predicted heart rate and blood pressure was 172/79 mmHg. Test was stopped due to SOB and leg fatigue. Patient denied any complaint of chest pain. Patient has Adequate exercise capacity, achieved 7.0 METs of workload on treadmill, the blood pressure response to exercise was Adequate. Electrocardiogram Resting electrocardiogram shows sinus rhythm, with exercise there is less than 1.[address] segment depression noted from the baseline EKG. The EKG portion of the exercise Myoview is negative for ischemia. Cardiac Stress and Resting SPECT Images: Cardiac Stress and Resting SPECT images were obtained using technetium 99m Myoview 31.1 mCi stress and 10.45 mCi at rest. Gated SPECT analysis of segmental wall motion and calculation of the ejection fraction also done. Cardiac stress and resting SPECT images show uniform myocardial activity without segmental perfusion abnormality, computer derived ejection fraction is 66% with no regional wall motion abnormality, right ventricle is normal size and contractility. Conclusion: 1. The EKG portion of the exercise Myoview is negative for ischemia, patient has adequate exercise capacity achieved 7 METS of workload on treadmill, the blood pressure response to exercise was adequate, there was no exercise-induced chest discomfort. 2. No scintigraphic evidence of reversible ischemia seen at this level of exercise, computer derived ejection fraction is 66% with no regional wall motion abnormality, right ventricle is normal size and contractility. 3. Normal exercise Myoview study. Electronically signed by : Riley Orellana MD 04/23/2022 21:01:18
--- NOTE | 2022-04-23 13:30 | HMH.ITSHM ---
Current Home Medications as stated by this patient Sara Suh or loss control representative. []OMEPRAZOLE LEVOTHYROXINE LEVOCETIRIZINE BUSPIRONE FLUTICASONE ALBUTEROL
--- NOTE | 2022-04-23 14:11 | CA_ITS ---
APPROVED REPORT Exam: Exercise Treadmill Technologist: Tiffany Richardson, Ht: 5 ft 0 in Wt: 143 lbs BSA: 1.62 m2 HR: 71 bpm BP: 134/78 mmHg Medical History Medications: Omeprazole,,,,, Levothyroxine,,,,, Buspirone,,,,, FluTICASONE,,,,, Levocetirizine,,,,, Creon,,,,, Albuerol,,,,, Stress Test Details Test: Lj HR Resting HR: 84 bpm Max Heart Rate (APMHR): 166.278482 bpm Max HR Achieved: 149 bpm Target HR (85% APMHR): 141.950696 bpm % of APMHR: 89.76 Recovery HR: 88 bpm BP Resting BP: 139.0/83.0 mmHg Max BP: 172.0/79.0 mmHg Recovery BP: 148.0/83.0 mmHg ECG Resting ECG: NSR, normal Clinical Exercise duration: 06:00 min Highest Stage Achieved: II Exercise capacity: 7.0 METs Stress ECG Conclusion Exercised 6:00 on Lj Protocol, completing stage II. Max HR: 149 % of PM: 90% Max BP: 172/79 METs: 7.0 Test stopped due to: SOA, fatigue Symptoms: No CP Arrhythmias/Ectopy: None ST-T Changes: within normal ST response to exercise. Conclusion: Normal GXT. Myoview images reported separately. Test Summary REST . . . . . . . Sitting REST . . . . . . . Standing REST 05:10 0.0 0.0 84 . 139/ 83 . . Stage 1 01:00 10.0 1.7 106 . . . . Stage 1 02:00 10.0 1.7 120 . . . . Stage 1 03:00 10.0 1.7 124 . 148/ 80 . . Stage 2 01:00 12.0 2.5 133 . . . . Stage 2 02:00 12.0 2.5 142 . . . . Stage 2 03:00 12.0 2.5 148 . . . Stop exercise at 06:00 RECOVERY 01:00 0.0 0.0 122 . . . . RECOVERY 02:00 0.0 0.0 98 . 172/ 79 . . RECOVERY 03:00 0.0 0.0 95 . 172/ 79 . . RECOVERY 04:00 0.0 0.0 90 . 147/ 84 . . RECOVERY 05:00 0.0 0.0 89 . 147/ 84 . . RECOVERY 05:48 0.0 0.0 88 . 148/ 83 . . Electronically signed by : Riley Orellana MD 04/23/2022 20:50:32
== END ==
PROVIDERS: PCP Nurse Practitioner Family; Visit Provider Physician Assistant
DX: R06.09 Other forms of dyspnea (principal); R07.89 Other chest pain
CPT/HCPCS: 78452; 93017; 93306; A9502

== ENCOUNTER → 2022-05-15 13:28 | Outpatient (CLI) | payer OTHER, SELFPAY ==
--- NOTE | 2022-05-15 13:28 | CT_ITS ---
FINAL REPORT CLINICAL HISTORY: cp, soa FINDINGS: Axial CT images of the chest were obtained with contrast. Coronal reformatted images were also obtained. This study was performed with techniques to keep radiation doses as low as reasonably achievable, (ALARA). Individualized dose reduction techniques using automated exposure control or adjustment of mA and/or KV according to the patient''''s size were employed. There is thickening of the distal thoracic esophagus which is nonspecific. Postoperative changes are seen in the right breast. There is no evidence of mediastinal or hilar mass or adenopathy.No axillary mass or adenopathy is identified. Lung window images demonstrate a 4 mm noncalcified nodule in the right upper lobe on image 27. There is mild bibasilar atelectasis. Limited images of the upper abdomen reveal mild fatty infiltration of the liver. IMPRESSION: Thickening of the distal thoracic esophagus is nonspecific and favored to be inflammatory over neoplastic. Consider correlation with upper endoscopy. 4 mm right upper lobe nodule. Recommend follow-up CT in 6-12 months. Reviewed, Interpreted and Dictated by Taj Santiago III, MD Transcribed by Franko Lindo Authenticated and . [facility]
[2022-05-15 14:09] LABS: Blood Urea Nitrogen 18 mg/dl (7-17); Estimated Glomerular Filt Rate 87 ml/min (>60); GFR (African American) 106 ML/MIN (>60)
== END ==
PROVIDERS: PCP Nurse Practitioner Family; Visit Provider Nurse Practitioner Family
DX: R06.00 Dyspnea, unspecified (principal); R07.89 Other chest pain
CPT/HCPCS: 36415; 71260; 82565; 84520; Q9967

== ENCOUNTER 2022-06-04 17:12 | Emergency (ER) | payer OTHER, SELFPAY ==
[2022-06-04 17:30] VITALS: BP 136/80; PULSE 75; RESP 20; TEMP 36.7; O2SAT 100; BMI 27.6
--- NOTE | 2022-06-04 17:53 | EXP.UTC ---
Discharge Plan Disposition Patient Disposition: Home, Self-Care Condition: Good Prescriptions Prescriptions: New cefdinir 300 mg capsule 300 mg PO BID 7 Days Qty: 14 0RF prednisone 10 mg tablet 10 mg PO BID 5 Days Qty: 10 0RF No Action levothyroxine 75 mcg tablet 75 mcg PO DAILY buspirone 10 mg tablet 10 mg PO BID Label Comments: TAKE 1 TABLET BY MOUTH TWICE DAILY levocetirizine 5 mg tablet 5 mg PO DAILY Label Comments: TAKE 1 TABLET BY MOUTH ONCE DAILY Creon 36,000-114,000- 180,000 unit capsule,delayed release(DR/EC) 1 cap PO BID Rx Instructions: administer with meals and/or snacks omeprazole 40 mg capsule,delayed release(DR/EC) 40 mg PO DAILY triamterene-hydrochlorothiazid [Maxzide-25mg] 37.5-25 mg tablet 1 tab PO .M, W, F Qty: 15 2RF albuterol sulfate 200 PUFFS HFA aerosol inhaler 1 - 2 puffs IH Q6HP PRN (Reason: Shortness Of Breath) Qty: 1 0RF fluticasone propion-salmeterol 28 PUFFS/50 MCG inhaler 1 inh IH BID 30 Days Qty: 1 0RF Referrals Follow up/Referrals: Zandra Dallas APRN [Primary Care Provider] - See instructions Activity Restrictions/Add. Instructions Additional Instructions/Restrictions: *Nasal saline and bulb syringe or nose becky to remove nasal drainage and help with nasal congestion. Hard to eat, drink, or sleep with nasal congestion so important to keep nose cleaned out. *Monitor Temp, Over the counter Motrin or Tylenol as directed/as needed Tylenol every 4 hours and Motrin every 6 hours (as long as your family doctor has told you that you can take it) for fever or pain. and straight to ER if unable to lower temp less than 101.0 after medication given *Warm salt water gargles may help to soothe the throat *Throat Lozenges? *Warm fluids like tea with honey may help to soothe the throat? *Sleep elevated *Humidifier/Vaporizer Your throat swab was sent for culture. Those results are typically sent to your primary care. Be sure to follow up in 2-3 days with your family doctor/primary care physician if no improvement so they can review those result and treat if necessary. If you don?t have a primary care doctor, I recommend you get one but in the mean time, you will have to return to a walk in clinic Follow up IMMEDIATELY for new or worsening symptoms or no Noticeable improvement over the next 48-72 hours. 911 for difficulty breathing or swallowing Clinical Impressions Clinical Impression: URI (upper respiratory infection) Instructions Patient Instructions: Sore Throat, DI for Sinusitis Discharge ED Provider: Ni Torres [facility] [place] HPI General Stated complaint: sore throat and cough Mode of Arrival: Ambulatory Source of Information: Patient Limitations: No Limitations Time Seen by Provider: 06/04/22 17:54 Description of Symptoms (Recalled from Triage Doc. by RN): PATIENT C/O SORE THROAT, COUGH, CHEST CONGESTION, REDNESS TO EYES, AND INCREASE THIRST SINCE FRIDAY HEENT Symptoms (Recalled from RN notes): Yes Resp Symptoms (Recalled from RN notes): Yes Skin Symptoms (Recalled from RN notes): No MS Symptoms (Recalled from RN notes): No Functional Status (Recalled from RN notes): WNL History of Present Illness Provider Complaint: Patient able to understand most andorran Having sore throat, cough, feels like moving into chest like bronchitis and her eyes are red and watery throat hurts and drinks help it feel better Related Data Home Medications Medication Instructions Recorded Confirmed buspirone 10 mg tablet 10 mg PO BID 04/18/22 05/07/22 levocetirizine 5 mg tablet 5 mg PO DAILY 04/18/22 05/07/22 levothyroxine 75 mcg tablet 75 mcg PO DAILY 04/18/22 05/07/22 [id number] 1 cap PO BID 04/18/22 05/07/22 36,000-114,000-180,000 unit capsule,delay rel (Creon) omeprazole 40 mg capsule,delayed 40 mg PO DAILY 04/18/22 05/07/22 release Previous Rx's Medication Instructions Re
[2022-06-04 18:13] LABS: UTC Strep Screen (Rapid) Negative (Negative)
[2022-06-04 18:46] VITALS: BP 136/80; PULSE 75; RESP 20; TEMP 36.7; O2SAT 100
== END 2022-06-04 18:50 | disposition home or self-care (01) ==
PROVIDERS: Emergency Provider Nurse Practitioner; PCP Nurse Practitioner Family
DX: J06.9 Acute upper respiratory infection, unspecified (principal); R06.02 Shortness of breath; R05.9 Cough, unspecified; R09.89 Other specified symptoms and signs involving the circulatory and respiratory systems; H57.9 Unspecified disorder of eye and adnexa
CPT/HCPCS: 87880; 99213; G0463

== ENCOUNTER 2022-06-17 16:14 | Emergency (ER) | payer OTHER, SELFPAY ==
[2022-06-17 16:30] VITALS: BP 128/79; PULSE 70; RESP 17; TEMP 36.8; O2SAT 97; BMI 26.6
--- NOTE | 2022-06-17 16:45 | EXP.UTC ---
Discharge Plan Disposition Patient Disposition: Home, Self-Care Condition: Good Prescriptions Prescriptions: New ofloxacin 0.3 % drops 10 drp otic (ear) BID 14 Days Qty: 10 0RF No Action levothyroxine 75 mcg tablet 75 mcg PO DAILY buspirone 10 mg tablet 10 mg PO BID Label Comments: TAKE 1 TABLET BY MOUTH TWICE DAILY levocetirizine 5 mg tablet 5 mg PO DAILY Label Comments: TAKE 1 TABLET BY MOUTH ONCE DAILY Creon 36,000-114,000- 180,000 unit capsule,delayed release(DR/EC) 1 cap PO BID Rx Instructions: administer with meals and/or snacks omeprazole 40 mg capsule,delayed release(DR/EC) 40 mg PO DAILY triamterene-hydrochlorothiazid [Maxzide-25mg] 37.5-25 mg tablet 1 tab PO .M, W, F Qty: 15 2RF albuterol sulfate 200 PUFFS HFA aerosol inhaler 1 - 2 puffs IH Q6HP PRN (Reason: Shortness Of Breath) Qty: 1 0RF cefdinir 300 mg capsule 300 mg PO BID 7 Days Qty: 14 0RF prednisone 10 mg tablet 10 mg PO BID 5 Days Qty: 10 0RF fluticasone propion-salmeterol 28 PUFFS/50 MCG inhaler 1 inh IH BID 30 Days Qty: 1 0RF Referrals Follow up/Referrals: Zandra Dallas APRN [Primary Care Provider] - See instructions Activity Restrictions/Add. Instructions Additional Instructions/Restrictions: *Monitor Temp, Over the counter Motrin or Tylenol as directed/as needed Tylenol every 4 hours and Motrin every 6 hours (as long as your family doctor has told you that you can take it) for fever or pain. and straight to ER if unable to lower temp less than 101.0 after medication given *Warm salt water gargles may help to soothe the throat *Throat Lozenges? *Warm fluids like tea with honey may help to soothe the throat? *Sleep elevated *Humidifier/Vaporizer Use drops for ear as prescribed Your throat swab was sent for culture. Those results are typically sent to your primary care. Be sure to follow up in 2-3 days with your family doctor/primary care physician if no improvement so they can review those result and treat if necessary. If you don?t have a primary care doctor, I recommend you get one but in the mean time, you will have to return to a walk in clinic Follow up IMMEDIATELY for new or worsening symptoms or no Noticeable improvement over the next 48-72 hours. 911 for difficulty breathing or swallowing Clinical Impressions Clinical Impression: Otitis media Instructions Patient Instructions: Middle Ear Infection Discharge ED Provider: Ni Torres [facility] [place] HPI General Stated complaint: SORE THROAT AND EAR ACHE Mode of Arrival: Ambulatory Source of Information: Patient Limitations: No Limitations Time Seen by Provider: 06/17/22 16:45 Description of Symptoms (Recalled from Triage Doc. by RN): PATIENT C/O SORE THROAT, EAR ACHE, AND NASAL CONGESTION. SHE WAS RECENTLY SEEN FOR THESE SYMPTOMS BUT STATES THEY ARE STILL THERE AND HER THROAT IS WORSE HEENT Symptoms (Recalled from RN notes): Yes Resp Symptoms (Recalled from RN notes): No Skin Symptoms (Recalled from RN notes): No MS Symptoms (Recalled from RN notes): No Functional Status (Recalled from RN notes): WNL History of Present Illness Provider Complaint: Patient states that she has been having pain in her left ear and sore throat for several weeks Patient speaks some Beninese and able to nod and answer simple questions Related Data Home Medications Medication Instructions Recorded Confirmed buspirone 10 mg tablet 10 mg PO BID 04/18/22 05/07/22 levocetirizine 5 mg tablet 5 mg PO DAILY 04/18/22 05/07/22 levothyroxine 75 mcg tablet 75 mcg PO DAILY 04/18/22 05/07/22 [id number] 1 cap PO BID 04/18/22 05/07/22 36,000-114,000-180,000 unit capsule,delay rel (Creon) omeprazole 40 mg capsule,delayed 40 mg PO DAILY 04/18/22 05/07/22 release Previous Rx's Medication Instructions Recorded albuterol sulfate 90 mcg/actuation 1 - 2 puffs inhalation Q6HP PRN
[2022-06-17 16:52] LABS: UTC Strep Screen (Rapid) Negative (Negative)
[2022-06-17 17:01] VITALS: BP 128/79; PULSE 70; RESP 17; TEMP 36.8; O2SAT 97
== END 2022-06-17 17:05 | disposition home or self-care (01) ==
PROVIDERS: Emergency Provider Nurse Practitioner; PCP Nurse Practitioner Family
DX: J02.9 Acute pharyngitis, unspecified (principal); H66.90 Otitis media, unspecified, unspecified ear; R06.02 Shortness of breath; R09.81 Nasal congestion; Z79.51 Long term (current) use of inhaled steroids; Z79.52 Long term (current) use of systemic steroids; Z79.899 Other long term (current) drug therapy; Z91.048 Other nonmedicinal substance allergy status
CPT/HCPCS: 87880; 99213; G0463

== ENCOUNTER 2022-06-25 10:51 | Day surgery (SDC) | payer OTHER, SELFPAY ==
[2022-06-25 11:17] VITALS: BP 142/78; PULSE 84; RESP 18; TEMP 36.6; O2SAT 98; BMI 27.3
[2022-06-25 11:20] LABS: POC Glucose,Bedside 108 (70-110)
[2022-06-25 11:24] VITALS: O2SAT 98
--- NOTE | 2022-06-25 11:30 | P.PN_ITS ---
PFSH PFS Medical History Diabetes Dyspnea GERD (gastroesophageal reflux disease) Hypothyroid No significant past medical history Surgical History History of breast biopsy History of colonoscopy Family History Other No significant family history Social History Smoking Status: Never smoker alcohol intake: never substance use type: denies use current occupational status: other Travel in the last 8 weeks: None household members: spouse housing: house caffeine: Yes [facility] Anesthesia Checklist Patient Identification Patient Identification: Arm Band and Verbal (Name & ) Structural Data Admitted From: Home Planned Operative Procedure/s: EGD NPO Status Verified Time NPO: 00:00 Additional verifications Anesthesia Reactions: No Airway Assessment C-Spine Mobility Assessed: Yes TMJ Mobility Assessed: Yes Neurological Assessment Level of Consciousness: Awake Hx Seizures: No Numbness or tingling in extremities: No Anesthesia Plan Anesthesia Risk discussed: Yes Anesthesia Plan: Verified ASA Class: II Anesthesia Type: MAC
--- NOTE | 2022-06-25 11:39 | HMH.SCOPE ---
Procedure: Date: 06/25/22 Patient Date of :: 1965 Procedure Performed:: Esophagogastroduodenoscopy with biopsy Indications:: Gastroesophageal reflux Dysphagia Note: Esophagogastroduodenoscopy performed by Dr. Hilario Fischer in September 2019 revealed nonerosive gastroesophageal reflux disease, mild esophageal dysmotility, and mild linear reactive gastropathy of the antrum Performing Provider:: Laci Sandhu MD Referring Provider:: . Sedation:: Monitored anesthesia care Procedure:: After informed consent was obtained the patient was taken to the endoscopy suite. Sedation ensued after the patient was transferred to the left lateral decubitus position. Pulse, blood pressure, and oxygen saturation were monitored throughout the procedure. The endoscope was advanced beyond the duodenal bulb. Retroflexion within the gastric lumen was accomplished. The gastroscope was carefully removed and the patient was transferred to recovery in stable condition. Please see findings and specimens below for detail. Findings:: Gastroesophageal junction at 35 cm Minimal mid/distal gastritis/gastropathy Specimens:: Antral biopsy Recommendations:: Follow-up pathology Proton pump inhibition Consider barium swallow May benefit from gastric emptying scan Complications:: No immediate Estimated blood obtained (mL): 1
[2022-06-25 11:41] VITALS: BP 107/67; BP 110/74; PULSE 109; PULSE 97; RESP 16; RESP 18; TEMP 36.3; O2SAT 94; O2SAT 97
[2022-06-25 11:51] VITALS: BP 110/74; PULSE 97; RESP 16; O2SAT 94
[2022-06-25 12:01] VITALS: BP 123/67; PULSE 99; RESP 16; O2SAT 97
[2022-06-25 12:11] VITALS: BP 110/72; PULSE 97; RESP 16; TEMP 36.3; O2SAT 97
== END 2022-06-25 12:11 | disposition home or self-care (01) ==
PROVIDERS: PCP Nurse Practitioner Family; Visit Provider Surgery
PROC: 0DJ08ZZ Inspection of Upper Intestinal Tract, Via Natural or Artificial Opening Endoscopic (ICD-10-PCS; CPT 43235; principal; 2022-06-25 13:00)
DX: K21.9 Gastro-esophageal reflux disease without esophagitis (principal); R13.10 Dysphagia, unspecified; K29.70 Gastritis, unspecified, without bleeding; Z79.899 Other long term (current) drug therapy; E11.9 Type 2 diabetes mellitus without complications
CPT/HCPCS: 43239; 82962

== ENCOUNTER → 2022-07-08 12:57 | Outpatient (CLI) | payer OTHER, SELFPAY ==
--- NOTE | 2022-07-08 13:02 | MM_ITS ---
PROCEDURE INFORMATION: Exam: MG Right Diagnostic Breast Tomosynthesis Exam date and time: 07/08/2022 1:00 PM Age: 56 years old Clinical indication: Right breast palpable lump; Additional info: RT outer mass Other procedure information: With pain and itching TECHNIQUE: Imaging protocol: Right Diagnostic tomosynthesis and 2D mammography including computer-aided detection (CAD) when performed. Unilateral or bilateral exam. COMPARISON: 1. MG MM DIG SCREENING MAMM BI W/CAD 09/17/2021 4:01 PM 2. MG MM DIG SCREENING MAMM BI W/CAD 09/18/2020 4:16 PM FINDINGS: MAMMOGRAPHY: The breast tissue is composed of scattered areas of fibroglandular density. There is no stellate mass, suspicious architectural distortion or suspicious microcalcifications to suggest malignancy. A skin marker was placed over an area of palpable concern in the right lateral breast. No suspicious findings on spot compression views of the right lateral breast. No skin thickening or axillary adenopathy. IMPRESSION: Patient to return for right breast ultrasound for full evaluation of the patient's complaint of a painful palpable abnormality in the right lateral breast ASSESSMENT: BI-RADS Category 0: Incomplete- Need Additional Imaging Evaluation and/or Prior Mammograms for Comparison
--- NOTE | 2022-07-08 13:03 | US_ITS ---
PROCEDURE INFORMATION: Exam: US Right Breast, Complete Exam date and time: 07/08/2022 2:10 PM Age: 56 years old Clinical indication: Palpable abnormality in the right upper outer quadrant TECHNIQUE: Imaging protocol: Complete ultrasound of all four quadrants of the Right breast and the retroareolar regions, including ultrasound of the axilla when performed. COMPARISON: MG MM DIG MAMM DX UNILAT RT CAD 07/08/2022 1:00 PM FINDINGS: Breast: Sonographic images of the right breast including the retroareolar region, all 4 quadrants and the axilla do not demonstrate any solid masses. Incidental 0.6 cm cyst in the 9 o'clock axis 2 cm from the nipple. No focal findings in the 11 o'clock axis 4 cm from the nipple where the patient reports a palpable abnormality. Postsurgical scarring in the right upper inner quadrant. No architectural distortion or acoustical shadowing. No skin thickening or axillary adenopathy. Other findings: Mammogram dated 07/08/2022 was re-reviewed. No suspicious findings are seen. IMPRESSION: Palpable abnormality in the right breast corresponds both mammographically and sonographically to normal fibroglandular structures. There is no mammographic evidence of malignancy. Further evaluation of a palpable abnormality should be based on clinical grounds regardless of radiographic findings or lack thereof. Annual mammographic screening on the left is recommended in September 2022 unless otherwise clinically indicated. ASSESSMENT: BI-RADS Category 2: Benign
== END ==
PROVIDERS: PCP Nurse Practitioner Family; Visit Provider Nurse Practitioner Family
DX: N63.11 Unspecified lump in the right breast, upper outer quadrant (principal)
CPT/HCPCS: 76641; 77061; 77065; G0279

== ENCOUNTER → 2022-08-06 10:52 | Outpatient (CLI) | payer OTHER, SELFPAY ==
--- NOTE | 2022-08-06 10:56 | US_ITS ---
PROCEDURE INFORMATION: Exam: US Right Breast, Complete Exam date and time: 08/06/2022 11:25 AM Age: 56 years old Clinical indication: Breast pain; Right; persistent palpable abnormality in the right upper outer quadrant TECHNIQUE: Imaging protocol: Complete ultrasound of all four quadrants of the Right breast and the retroareolar regions, including ultrasound of the axilla when performed. COMPARISON: US BREAST RT COMPLETE 07/08/2022 2:10 PM FINDINGS: Breast: Sonographic images of the right breast including the retroareolar region, all 4 quadrants and the axilla do not demonstrate any suspicious solid or cystic masses. Few scattered subcentimeter cysts are present. Postoperative distortion in the upper inner quadrant is noted. No focal findings in the upper outer quadrant in the 11 o'clock axis 4 cm from the nipple where the patient reports a persistent abnormality. No suspicious architectural distortion or acoustical shadowing. No skin thickening or axillary adenopathy. IMPRESSION: No focal findings in the area of palpable concern in the right upper quadrant. Review of the patient's mammogram and sonogram dated 07/08/2022 do not demonstrate any suspicious findings.Further evaluation of a palpable abnormality should be based on clinical grounds regardless of radiographic findings or lack thereof. Surgical consultation for clinical assessment and physical examination is suggested given the persistent nature of the patient's complaint of a palpable abnormality despite negative radiology. Annual bilateral mammographic screening is recommended unless otherwise clinically indicated. ASSESSMENT: BI-RADS Category 2: Benign
== END ==
PROVIDERS: PCP Nurse Practitioner Family; Visit Provider Nurse Practitioner Family
DX: R92.8 Other abnormal and inconclusive findings on diagnostic imaging of breast (principal)
CPT/HCPCS: 76641

== ENCOUNTER 2022-11-17 18:20 | Emergency (ER) | payer OTHER, SELFPAY ==
[2022-11-17 20:05] VITALS: BP 140/94; PULSE 87; RESP 20; TEMP 36.5; O2SAT 100; BMI 29.4
--- NOTE | 2022-11-17 20:06 | EXP.UTC ---
Discharge Plan Disposition Patient Disposition: Home, Self-Care Condition: Good Prescriptions Prescriptions: New amoxicillin [amoxicillin] 875 mg tablet 875 mg PO Q12H Qty: 20 0RF benzonatate [benzonatate] 100 mg capsule 100 mg PO TIDP PRN (Reason: Cough) Qty: 30 0RF methylprednisolone 4 mg Tablets,Dose Pack 4 mg PO DIRECTED Qty: 21 0RF No Action amoxicillin-pot clavulanate 875-125 mg tablet 1 tab PO BID 10 Days Qty: 20 0RF benzonatate 200 mg capsule 200 mg PO TID PRN (Reason: cough) 10 Days Qty: 30 0RF ofloxacin 0.3 % drops 1 drp Eye-Both QID Qty: 10 0RF levothyroxine 75 mcg tablet 75 mcg PO DAILY buspirone 10 mg tablet 10 mg PO BID Label Comments: TAKE 1 TABLET BY MOUTH TWICE DAILY levocetirizine 5 mg tablet 5 mg PO DAILY Label Comments: TAKE 1 TABLET BY MOUTH ONCE DAILY Creon 36,000-114,000- 180,000 unit capsule,delayed release(DR/EC) 1 cap PO BID Rx Instructions: administer with meals and/or snacks omeprazole 40 mg capsule,delayed release(DR/EC) 40 mg PO DAILY albuterol sulfate 200 PUFFS HFA aerosol inhaler 1 - 2 puffs IH Q6HP PRN (Reason: Shortness Of Breath) Qty: 1 0RF fluticasone propion-salmeterol 28 PUFFS/50 MCG blister with device 1 inh inhalation BID fenofibrate 160 mg Tablet 160 mg PO DAILY Referrals Follow up/Referrals: Zandra Dallas APRN [Primary Care Provider] - See instructions Activity Restrictions/Add. Instructions Additional Instructions/Restrictions: Drink plenty of fluids. Take tylenol or ibuprofen for pain or fever. Take the medications as directed. Follow up with your regular doctor. GO TO THE ER FOR ANY WORSENING SYMPTOMS Clinical Impressions Clinical Impression: Otitis media, Sinusitis Instructions Patient Instructions: Sinusitis, Middle Ear Infection Discharge ED Provider: Danis Burgos [facility] General Stated complaint: earache,nose congestion,hard to swallow Time Seen by Provider: 11/17/22 20:06 History of Present Illness Provider Complaint: She c/o sore throat and right ear pain for the past 2 days. Related Data Home Medications Medication Instructions Recorded Confirmed buspirone 10 mg tablet 10 mg PO BID . 04/18/22 10/30/22 levocetirizine 5 mg tablet 5 mg PO DAILY allergies 04/18/22 10/30/22 levothyroxine 75 mcg tablet 75 mcg PO DAILY thyroid 04/18/22 10/30/22 [id number] 1 cap PO BID pancreas 04/18/22 10/30/22 36,000-114,000-180,000 unit capsule,delay rel (Creon) omeprazole 40 mg capsule,delayed 40 mg PO DAILY GERD 04/18/22 10/30/22 release fenofibrate 160 mg tablet 160 mg PO DAILY . 06/25/22 10/30/22 fluticasone 250 mcg-salmeterol 50 1 inh inhalation BID Breathing 06/25/22 10/30/22 mcg/dose blistr powdr for problems inhalation Previous Rx's Medication Instructions Recorded albuterol sulfate 90 mcg/actuation 1 - 2 puffs inhalation Q6HP PRN 10/09/21 aerosol inhaler Shortness Of Breath #1 ea amoxicillin 875 mg-potassium 1 tab PO BID 10 days #20 tabs 10/30/22 clavulanate 125 mg tablet benzonatate 200 mg capsule 200 mg PO TID PRN cough 10 days 10/30/22 #30 caps ofloxacin 0.3 % eye drops 1 drp Eye-Both QID #10 mL 10/30/22 amoxicillin 875 mg tablet 875 mg PO Q12H #20 tabs 11/17/22 benzonatate 100 mg capsule 100 mg PO TIDP PRN Cough #30 caps 11/17/22 methylprednisolone 4 mg tablets in 4 mg PO DIRECTED #21 tabs 11/17/22 a dose pack Allergies Allergy/AdvReac Type Severity Reaction Status Date / Time nickel [NICKEL] Allergy Unknown I-RASH Verified 11/17/22 20:21 silver Allergy Unknown Blister Verified 11/17/22 20:21 [From Tegaderm AG Mesh] [facility] Disclaimer: The information contained in this section may have been updated after the patient was seen, as this information can be updated by other users. Medical History Asthma Atypical
[2022-11-17 20:20] LABS: UTC Strep Screen (Rapid) Negative (Negative)
[2022-11-17 20:41] VITALS: BP 140/94; PULSE 87; RESP 20; TEMP 36.5; O2SAT 100
== END 2022-11-17 20:41 | disposition home or self-care (01) ==
PROVIDERS: Emergency Provider Nurse Practitioner Family; PCP Nurse Practitioner Family
DX: H66.93 Otitis media, unspecified, bilateral (principal); J01.90 Acute sinusitis, unspecified; R07.0 Pain in throat
CPT/HCPCS: 87880; 99212; 99214; G0463

== ENCOUNTER → 2022-12-17 10:02 | Outpatient (CLI) | payer OTHER, SELFPAY ==
--- NOTE | 2022-12-17 10:07 | NM_ITS ---
FINAL REPORT TECHNIQUE: 0.53 Millicuries of technetium 99m sulfur colloid was ingested with 2 a eggs, 1 white toast with bladder, and 6 oz of water. CLINICAL HISTORY: FUNCTIONAL DYSPEPSIA,BLOATING .53 [facility] tc sulfur colloid injected into 2 whole eggs 1 white toast with butter 6 oz of water FINDINGS: GASTRIC EMPTYING SCAN Static images show normal emptying of the stomach into the small bowel. Based on the time activity curve, the estimated round half-emptying time is 96 minutes. IMPRESSION: Normal gastric emptying study. Reviewed, Interpreted and Dictated by Taj Santiago III, MD Transcribed by Tiffanie Espinal Authenticated and [facility]
== END ==
PROVIDERS: PCP Nurse Practitioner Family; Visit Provider Nurse Practitioner Family
DX: K30 Functional dyspepsia (principal); R14.0 Abdominal distension (gaseous)
CPT/HCPCS: 78264; A9541

== ENCOUNTER 2022-12-22 12:44 | Emergency (ER) | payer OTHER, SELFPAY ==
[2022-12-22 12:55] VITALS: BP 128/76; PULSE 74; RESP 18; TEMP 37; O2SAT 98; BMI 27.8
--- NOTE | 2022-12-22 13:32 | EXP.UTC ---
Discharge Plan Disposition Patient Disposition: Home, Self-Care Condition: Good Prescriptions Prescriptions: New gentamicin 0.3 % drops 2 drp ophthalmic (eye) Q4H 7 Days Qty: 10 0RF Rx Instructions: bilateral eyes as directed methylprednisolone [Medrol (Romain)] 4 mg tablets,dose pack See Rx Instructions .Route .COMPLEX 6 Days Qty: 21 0RF Rx Instructions: taper pack; amoxicillin-pot clavulanate 875-125 mg Tablet 1 tab PO Q12H Qty: 20 0RF guaifenesin [Mucinex] 600 mg tablet extended release 12hr 600 mg PO BID PRN (Reason: cough) Qty: 20 0RF No Action atorvastatin 20 mg tablet 20 mg PO DAILY fluticasone propionate 50 mcg/actuation spray,suspension 1 spray intranasal DAILY triamterene-hydrochlorothiazid 37.5-25 mg capsule 1 cap PO .MWF Qty: 15 5RF levothyroxine 75 mcg tablet 75 mcg PO DAILY buspirone 10 mg tablet 10 mg PO BID Label Comments: TAKE 1 TABLET BY MOUTH TWICE DAILY levocetirizine 5 mg tablet 5 mg PO DAILY Label Comments: TAKE 1 TABLET BY MOUTH ONCE DAILY Creon 36,000-114,000- 180,000 unit capsule,delayed release(DR/EC) 1 cap PO BID Rx Instructions: administer with meals and/or snacks omeprazole 40 mg capsule,delayed release(DR/EC) 40 mg PO DAILY albuterol sulfate 200 PUFFS HFA aerosol inhaler 1 - 2 puffs IH Q6HP PRN (Reason: Shortness Of Breath) Qty: 1 0RF fluticasone propion-salmeterol 28 PUFFS/50 MCG blister with device 1 inh inhalation BID Referrals Follow up/Referrals: Zandra Dallas APRN [Primary Care Provider] - See instructions Activity Restrictions/Add. Instructions Additional Instructions/Restrictions: Use drops as prescribed Wash hands well before and after applying drops Start antibiotic today. Be sure to complete entire prescription even if feeling better Monitor temp. Tylenol every 4 hours as needed and / or ibuprofen every 6 hours as needed ( As long as your primary care physician has told you that it ok to take both. For fever/aches/pains ER if no less than 101 despite Tylenol or Motrin Humidifier/vaporizer or hot steamy shower *Start steroid today. Helps with inflammation therefore, cough and wheezing. Follow directions on the package. Reviewed side effects. Patient reports taking them before. Follow up IMMEDIATELY for new or worsening of symptoms OR no noticeable improvement over the next 48-72 hours. 911 immediately for any life threatening symptoms such as chest pain or difficulty breathing Clinical Impressions Clinical Impression: Conjunctivitis, Sinus infection Instructions Patient Instructions: DI for Sinusitis, Sinusitis, DI for Conjunctivitis, Conjunctivitis, Acute Bronchitis Discharge ED Provider: Ni Torres [facility] HPI General Stated complaint: Eye redness w/drainage Mode of Arrival: Ambulatory Source of Information: Patient Limitations: No Limitations Time Seen by Provider: 12/22/22 13:32 Description of Symptoms (Recalled from Triage Doc. by RN): PATIENT C/O REDNESS AND DRAINAGE TO BILATERAL EYES X 2 DAYS HEENT Symptoms (Recalled from RN notes): Yes Resp Symptoms (Recalled from RN notes): No Skin Symptoms (Recalled from RN notes): No MS Symptoms (Recalled from RN notes): No Functional Status (Recalled from RN notes): WNL History of Present Illness Provider Complaint: Daughter with patient, states that patient understands thai just doesnt speak it well, Daughter states that she has been having redness and drainage in both eyes worse in left and this morning her left eye was matted shut States that she has also had sore throat sinus congestion and pressure, and drainage in the back of her throat feels like it is trying to move into her chest and wanted checked for strep throat Related Data Home Medications Medication Instructions Recorded Confirmed buspirone 10 mg tablet 10 mg PO BID . 04/18/2212/05
[2022-12-22 13:48] LABS: UTC Strep Screen (Rapid) Negative (Negative)
[2022-12-22 14:20] VITALS: BP 128/76; PULSE 74; RESP 18; TEMP 37; O2SAT 98
== END 2022-12-22 14:23 | disposition home or self-care (01) ==
PROVIDERS: Emergency Provider Nurse Practitioner; PCP Nurse Practitioner Family
DX: H10.33 Unspecified acute conjunctivitis, bilateral (principal); J01.90 Acute sinusitis, unspecified; I10 Essential (primary) hypertension; E78.5 Hyperlipidemia, unspecified; E03.9 Hypothyroidism, unspecified; K21.9 Gastro-esophageal reflux disease without esophagitis
CPT/HCPCS: 87880; 99212; 99214; G0463

== ENCOUNTER 2023-02-05 16:08 | Emergency (ER) | payer OTHER, SELFPAY ==
[2023-02-05 16:09] VITALS: BP 130/71; PULSE 60; RESP 18; TEMP 36.7; O2SAT 100; BMI 29.8
--- NOTE | 2023-02-05 16:26 | EXP.UTC ---
Discharge Plan Disposition Patient Disposition: Home, Self-Care Condition: Good Prescriptions Prescriptions: New amoxicillin-pot clavulanate 875-125 mg Tablet 1 tab PO Q12H Qty: 20 0RF fluticasone propionate [Flonase Allergy Relief] 50 mcg/actuation spray,suspension 1 - 2 spray intranasal DAILY Qty: 16 0RF Rx Instructions: administer into each nostril methylprednisolone [Medrol (Romain)] 4 mg tablets,dose pack See Rx Instructions .Route .COMPLEX 6 Days Qty: 21 0RF Rx Instructions: taper pack; No Action atorvastatin 20 mg tablet 20 mg PO DAILY fluticasone propionate 50 mcg/actuation spray,suspension 1 spray intranasal DAILY triamterene-hydrochlorothiazid 37.5-25 mg capsule 1 cap PO .MWF Qty: 15 5RF levothyroxine 75 mcg tablet 75 mcg PO DAILY buspirone 10 mg tablet 10 mg PO BID Label Comments: TAKE 1 TABLET BY MOUTH TWICE DAILY levocetirizine 5 mg tablet 5 mg PO DAILY Label Comments: TAKE 1 TABLET BY MOUTH ONCE DAILY Creon 36,000-114,000- 180,000 unit capsule,delayed release(DR/EC) 1 cap PO BID Rx Instructions: administer with meals and/or snacks omeprazole 40 mg capsule,delayed release(DR/EC) 40 mg PO DAILY albuterol sulfate 200 PUFFS HFA aerosol inhaler 1 - 2 puffs IH Q6HP PRN (Reason: Shortness Of Breath) Qty: 1 0RF fluticasone propion-salmeterol 28 PUFFS/50 MCG blister with device 1 inh inhalation BID gentamicin 0.3 % drops 2 drp ophthalmic (eye) Q4H 7 Days Qty: 10 0RF Rx Instructions: bilateral eyes as directed methylprednisolone [Medrol (Romain)] 4 mg tablets,dose pack See Rx Instructions .Route .COMPLEX 6 Days Qty: 21 0RF Rx Instructions: taper pack; amoxicillin-pot clavulanate 875-125 mg Tablet 1 tab PO Q12H Qty: 20 0RF guaifenesin [Mucinex] 600 mg tablet extended release 12hr 600 mg PO BID PRN (Reason: cough) Qty: 20 0RF Referrals Follow up/Referrals: Zandra Dallas APRN [Primary Care Provider] - See instructions Activity Restrictions/Add. Instructions Additional Instructions/Restrictions: *Monitor Temp, Over the counter Motrin or Tylenol as directed/as needed Tylenol every 4 hours and Motrin every 6 hours (as long as your family doctor has told you that you can take it) for fever or pain. and straight to ER if unable to lower temp less than 101.0 after medication given *Warm salt water gargles may help to soothe the throat *Throat Lozenges? *Warm fluids like tea with honey may help to soothe the throat? *Sleep elevated *Humidifier/Vaporizer *Flonase 2 sprays in each nostril daily but be aware that it may take 2-3 days before you notice improvement *Take medication as prescribed Follow up IMMEDIATELY for new or worsening symptoms or no Noticeable improvement over the next 48-72 hours. 911 for difficulty breathing or swallowing Clinical Impressions Clinical Impression: Otitis media, Sinus infection Instructions Patient Instructions: DI for Sinusitis, Sinusitis, Middle Ear Infection Discharge ED Provider: [place] [facility] [place] General Stated complaint: L ear pain Mode of Arrival: Ambulatory Source of Information: Patient Limitations: No Limitations Time Seen by Provider: 02/05/23 16:26 Description of Symptoms (Recalled from Triage Doc. by RN): Complaint of left ear pain and congestion since yesterday. HEENT Symptoms (Recalled from RN notes): Yes Resp Symptoms (Recalled from RN notes): No Skin Symptoms (Recalled from RN notes): No MS Symptoms (Recalled from RN notes): No Functional Status (Recalled from RN notes): wnl History of Present Illness Provider Complaint: Daughter states that patient understands estonian just doesnt speak it very well States that patient has been complaining on and off with pain in her left ear and left side of sinuses for a couple weeks on and off but got worse since yesterday States that today
[2023-02-05 16:38] VITALS: BP 130/71; PULSE 60; RESP 18; TEMP 36.7; O2SAT 100
== END 2023-02-05 16:39 | disposition home or self-care (01) ==
PROVIDERS: Emergency Provider Nurse Practitioner; PCP Nurse Practitioner Family
DX: H66.92 Otitis media, unspecified, left ear (principal); J01.90 Acute sinusitis, unspecified; E11.9 Type 2 diabetes mellitus without complications; E03.9 Hypothyroidism, unspecified; I10 Essential (primary) hypertension; E78.5 Hyperlipidemia, unspecified; J45.909 Unspecified asthma, uncomplicated; K21.9 Gastro-esophageal reflux disease without esophagitis
CPT/HCPCS: 99212; 99214; G0463

== ENCOUNTER 2023-02-13 16:01 | Emergency (ER) | payer OTHER, SELFPAY ==
[2023-02-13 16:01] VITALS: BP 139/85; PULSE 71; RESP 18; TEMP 36.6; O2SAT 96; BMI 29.8
--- NOTE | 2023-02-13 16:21 | EXP.UTC ---
Discharge Plan Disposition Patient Disposition: Home, Self-Care Prescriptions Prescriptions: New prednisone 10 mg tablet 10 mg PO DIRECTED 9 Days Qty: 21 0RF Rx Instructions: Take 4 tablets daily for 3 days, then take 2 tablets daily for 3 days, then take 1 tablet daily for 3 days, then stop. No Action atorvastatin 20 mg tablet 20 mg PO DAILY fluticasone propionate 50 mcg/actuation spray,suspension 1 spray intranasal DAILY triamterene-hydrochlorothiazid 37.5-25 mg capsule 1 cap PO .MWF Qty: 15 5RF levothyroxine 75 mcg tablet 75 mcg PO DAILY buspirone 10 mg tablet 10 mg PO BID Label Comments: TAKE 1 TABLET BY MOUTH TWICE DAILY levocetirizine 5 mg tablet 5 mg PO DAILY Label Comments: TAKE 1 TABLET BY MOUTH ONCE DAILY Creon 36,000-114,000- 180,000 unit capsule,delayed release(DR/EC) 1 cap PO BID Rx Instructions: administer with meals and/or snacks omeprazole 40 mg capsule,delayed release(DR/EC) 40 mg PO DAILY albuterol sulfate 200 PUFFS HFA aerosol inhaler 1 - 2 puffs IH Q6HP PRN (Reason: Shortness Of Breath) Qty: 1 0RF fluticasone propion-salmeterol 28 PUFFS/50 MCG blister with device 1 inh inhalation BID gentamicin 0.3 % drops 2 drp ophthalmic (eye) Q4H 7 Days Qty: 10 0RF Rx Instructions: bilateral eyes as directed methylprednisolone [Medrol (Romain)] 4 mg tablets,dose pack See Rx Instructions .Route .COMPLEX 6 Days Qty: 21 0RF Rx Instructions: taper pack; amoxicillin-pot clavulanate 875-125 mg Tablet 1 tab PO Q12H Qty: 20 0RF guaifenesin [Mucinex] 600 mg tablet extended release 12hr 600 mg PO BID PRN (Reason: cough) Qty: 20 0RF amoxicillin-pot clavulanate 875-125 mg Tablet 1 tab PO Q12H Qty: 20 0RF fluticasone propionate [Flonase Allergy Relief] 50 mcg/actuation spray,suspension 1 - 2 spray intranasal DAILY Qty: 16 0RF Rx Instructions: administer into each nostril methylprednisolone [Medrol (Romain)] 4 mg tablets,dose pack See Rx Instructions .Route .COMPLEX 6 Days Qty: 21 0RF Rx Instructions: taper pack; Referrals Follow up/Referrals: Harpal Arthur MD [Physician] - See instructions Zandra Dallas APRN [Primary Care Provider] - See instructions Activity Restrictions/Add. Instructions Additional Instructions/Restrictions: Take tylenol or ibuprofen for pain or fever. Take the medications as directed. Follow up with your regular doctor. I put in a referral to an ENT doctor. Since you have been having a lot of trouble with your ears it would be a good idea to follow up with them to see if there is anything they can do to help. GO TO THE ER FOR ANY WORSENING SYMPTOMS Clinical Impressions Clinical Impression: Ear ache Instructions Patient Instructions: Middle Ear Infection Discharge ED Provider: Danis Burgos [facility] General Stated complaint: ear pain Mode of Arrival: Ambulatory Source of Information: Patient Limitations: No Limitations Time Seen by Provider: 02/13/23 16:21 Description of Symptoms (Recalled from Triage Doc. by RN): Patient complaint of left ear pain. States she was here last Friday for the same thing and the medication is not helping it. HEENT Symptoms (Recalled from RN notes): Yes Resp Symptoms (Recalled from RN notes): No Skin Symptoms (Recalled from RN notes): No MS Symptoms (Recalled from RN notes): No Functional Status (Recalled from RN notes): wnl History of Present Illness Provider Complaint: She states that she has had frequent episodes of left ear pain. She was treated for this last week. She took steroids and got better, but since finishing it her symptoms have returned. She is using her flonase and zyrtec as prescribed already. Related Data Home Medications Medication Instructions Recorded Confirmed buspirone 10 mg tablet 10 mg PO BID . 04/18/22 12/05/22 levocetirizine 5 mg tablet 5 mg PO ELODIA
[2023-02-13 16:39] VITALS: BP 139/85; PULSE 71; RESP 18; TEMP 36.6; O2SAT 96
== END 2023-02-13 16:39 | disposition home or self-care (01) ==
PROVIDERS: Emergency Provider Nurse Practitioner Family; PCP Nurse Practitioner Family
DX: H66.93 Otitis media, unspecified, bilateral (principal); J45.909 Unspecified asthma, uncomplicated; E11.9 Type 2 diabetes mellitus without complications; K21.9 Gastro-esophageal reflux disease without esophagitis; E78.5 Hyperlipidemia, unspecified; I10 Essential (primary) hypertension; E03.9 Hypothyroidism, unspecified
CPT/HCPCS: 99212; 99214; G0463

== ENCOUNTER → 2023-02-27 07:28 | Outpatient (CLI) | payer OTHER, SELFPAY ==
--- NOTE | 2023-02-27 07:32 | CT_ITS ---
FINAL REPORT CLINICAL HISTORY: SINUSITIS, right side pressure COMPARISON: None FINDINGS: The paranasal sinuses are well aerated. The ostiomeatal units are patent. There is no fracture. There are no air-fluid levels. IMPRESSION: Unremarkable. Reviewed, Interpreted and Dictated by Quoc Bass MD Transcribed by Sarita Soto Authenticated and [facility]
--- NOTE | 2023-02-27 07:33 | MM_ITS ---
PROCEDURE INFORMATION: Exam: MG Bilateral Screening 3D Mammography Exam date and time: 02/27/2023 7:51 AM Age: 57 years old Clinical indication: Screening examination. History of benign right excisional biopsy. Paternal aunt had breast cancer. TECHNIQUE: Imaging protocol: Bilateral Screening tomosynthesis and 2D mammography including computer-aided detection (CAD) when performed. COMPARISON: 1. MG MM DIG MAMM DX UNILAT RT CAD 07/08/2022 1:00 PM 2. MG MM DIG SCREENING MAMM BI W/CAD 09/17/2021 4:01 PM 3. MG MM DIG SCREENING MAMM BI W/CAD 09/18/2020 4:16 PM 4. MG MM DIG MAMM BI DX W/CAD 09/07/2019 1:24 PM FINDINGS: MAMMOGRAPHY: Breast composition: There are scattered areas of fibroglandular density. Mass: None. Architectural distortion: None. Calcifications: No suspicious calcifications. Asymmetric density: None. Skin thickening: None. Axillary adenopathy: None. Other findings: Right biopsy clips. IMPRESSION: No mammographic evidence of malignancy. Annual screening is recommended unless otherwise clinically indicated. ASSESSMENT: BI-RADS Category 2: Benign
== END ==
PROVIDERS: PCP Nurse Practitioner Family; Visit Provider Nurse Practitioner Family
DX: Z12.31 Encounter for screening mammogram for malignant neoplasm of breast (principal); J32.0 Chronic maxillary sinusitis
CPT/HCPCS: 70486; 77063; 77067

== ENCOUNTER → 2023-03-17 12:55 | Outpatient (CLI) | payer OTHER, SELFPAY ==
--- NOTE | 2023-03-17 12:59 | CA_ITS ---
FINAL REPORT TECHNIQUE: Color Doppler, duplex Doppler and devlin scale sonography of the bilateral neck arterial vasculature was performed. Velocities were measured in the carotid arteries. Stenosis evaluation based on the validated velocity criteria. CLINICAL HISTORY: HTN, smoker, pre diabetic. FINDINGS: The peak systolic velocity of the right common carotid artery is 116 cm/s. The peak systolic velocity of the right internal carotid artery is 90 cm/s and end diastolic velocity 43 cm/s. A small amount of plaque is present. The right external carotid artery is patent. The right vertebral artery is patent with antegrade flow. The peak systolic velocity of the left common carotid artery is 135 cm/s. The peak systolic velocity of the left internal carotid artery is 127 cm/s and end diastolic velocity 59 cm/s. A small amount of plaque is present. The left external carotid artery is patent.The left vertebral artery is patent with antegrade flow. IMPRESSION: Less than 50% bilateral carotid stenoses. Bilateral patent vertebral arteries with antegrade flow. If indicated, CTA or MRA could further evaluate. Reviewed, Interpreted and Dictated by Taj Santiago III, MD Transcribed by Valerie Villegas Authenticated and . [facility]
== END ==
PROVIDERS: PCP Nurse Practitioner Family; Visit Provider Nurse Practitioner Family
DX: R42 Dizziness and giddiness (principal)
CPT/HCPCS: 93880

== ENCOUNTER → 2023-05-08 15:45 | Outpatient (POV) | payer OTHER, SELFPAY | PROVIDERS: Visit Provider Specialist/Technologist | DX: Z00.00 Encounter for general adult medical examination without abnormal findings (principal) ==

== ENCOUNTER 2023-05-29 16:23 | Emergency (ER) | payer OTHER, SELFPAY ==
[2023-05-29 16:40] VITALS: BP 144/85; PULSE 83; RESP 21; TEMP 36.6; O2SAT 99; BMI 26.5
--- NOTE | 2023-05-29 16:55 | EXP.UTC ---
Discharge Plan Disposition Patient Disposition: Home, Self-Care Condition: Good Prescriptions Prescriptions: No Action atorvastatin 20 mg tablet 20 mg PO DAILY fexofenadine 180 mg tablet 180 mg PO DAILY Patient Comments: TAKE 1 TABLET BY MOUTH ONCE DAILY SWALLOW WHOLE WITH WATER. DO NOT TAKE WITH FRUIT JUICES tizanidine 2 mg tablet 2 mg PO TID Patient Comments: TAKE 1 TABLET BY MOUTH THREE TIMES DAILY azelastine 137 mcg (0.1 %) aerosol,spray 2 spray intranasal BID Qty: 30 2RF Rx Instructions: administer into each nostril levothyroxine 75 mcg tablet 75 mcg PO DAILY buspirone 10 mg tablet 10 mg PO BID Patient Comments: TAKE 1 TABLET BY MOUTH TWICE DAILY levocetirizine 5 mg tablet 5 mg PO DAILY Patient Comments: TAKE 1 TABLET BY MOUTH ONCE DAILY Creon 36,000-114,000- 180,000 unit capsule,delayed release(DR/EC) 1 cap PO BID Rx Instructions: administer with meals and/or snacks omeprazole 40 mg capsule,delayed release(DR/EC) 40 mg PO DAILY Xifaxan 550 mg tablet PO ONCE amoxicillin-pot clavulanate 875-125 mg tablet 1 tab PO BID 10 Days Qty: 20 0RF methylprednisolone [Medrol (Romain)] 4 mg tablets,dose pack See Rx Instructions PO PER PKG DIR Qty: 21 0RF Rx Instructions: PO PER PKG DIR fluticasone propion-salmeterol 28 PUFFS/50 MCG blister with device 1 inh inhalation BID fluticasone propionate [Flonase Allergy Relief] 50 mcg/actuation spray,suspension 1 - 2 spray intranasal DAILY Qty: 16 0RF Rx Instructions: administer into each nostril Referrals Follow up/Referrals: Zandra Dallas APRN [Primary Care Provider] - See instructions Activity Restrictions/Add. Instructions Additional Instructions/Restrictions: *Increase fluids. Water not Soda or Tea Follow up with your Family Doctor if symptoms continue or worsen *Be SURE to follow up anytime for new or worsening symptoms with your family doctor. Call your doctor office and make appointment for 48 hours (2 days from today) ?to follow up and get the results of your urine culture and further treatment Clinical Impressions Clinical Impression: Burning with urination Instructions Patient Instructions: DI for Dysuria -- Adult Discharge ED Provider: Ni Torres [facility] HPI General Stated complaint: UTI Mode of Arrival: Ambulatory Source of Information: Patient Limitations: No Limitations Time Seen by Provider: 05/29/23 16:50 Description of Symptoms (Recalled from Triage Doc. by RN): PATIENT C/O BURNING WITH URINATION X 2 DAYS HEENT Symptoms (Recalled from RN notes): No Resp Symptoms (Recalled from RN notes): No Skin Symptoms (Recalled from RN notes): No MS Symptoms (Recalled from RN notes): No Functional Status (Recalled from RN notes): WNL History of Present Illness Provider Complaint: Patient speaks some gambian but understands it well daughter is with her State that she is urinating alot, only small amounts at a time, feeling achy in her back and burning when she urinates for 2 days like she had before with UTI Related Data Home Medications Medication Instructions Recorded Confirmed buspirone 10 mg tablet 10 mg PO BID . 04/18/22 05/08/23 levocetirizine 5 mg tablet 5 mg PO DAILY allergies 04/18/22 05/08/23 levothyroxine 75 mcg tablet 75 mcg PO DAILY thyroid 04/18/22 05/08/23 [id number] 1 cap PO BID pancreas 04/18/22 05/08/23 36,000-114,000-180,000 unit capsule,delay rel (Creon) omeprazole 40 mg capsule,delayed 40 mg PO DAILY GERD 04/18/22 05/08/23 release fluticasone 250 mcg-salmeterol 50 1 inh inhalation BID Breathing 06/25/22 05/08/23 mcg/dose blistr powdr for problems inhalation atorvastatin 20 mg tablet 20 mg PO DAILY 12/05/22 05/08/23 fexofenadine 180 mg tablet 180 mg PO DAILY 04/28/23 05/08/23 tizanidine 2 mg tablet 2 mg PO TID 04/28/23 05/08/23 rifaximin 550 mg tablet (Xifax
[2023-05-29 17:01] LABS: Microscopic, Urine URINE MICROSCOPIC (MICROSCOPIC)
[2023-05-29 17:18] LABS: Appearance,Urine CLEAR (Clear); Bilirubin,Urine Negative (Negative); Blood, Urine TRACE-I (Negative); Color,Urine YELLOW (Yellow); Glucose,Urine (UA) Negative (Negative); Ketones,Urine Negative (Negative); Leukocyte Esterase,Urine Negative (Negative); Nitrate,Urine Negative (Negative); Protein,Urine Negative (Negative); Urobilinogen,Urine 0.2 EU/dl (0.2)
[2023-05-29 17:29] VITALS: BP 144/85; PULSE 83; RESP 21; TEMP 36.6; O2SAT 99
[2023-05-29 18:13] LABS: RBC,Urine Occasional #/hpf (0-3); WBC,Urine Occasional #/hpf (0-3)
== END 2023-05-29 17:33 | disposition home or self-care (01) ==
PROVIDERS: Emergency Provider Nurse Practitioner; PCP Nurse Practitioner Family
DX: R30.0 Dysuria (principal); M54.59 Other low back pain; E11.9 Type 2 diabetes mellitus without complications; K21.9 Gastro-esophageal reflux disease without esophagitis; E78.5 Hyperlipidemia, unspecified; I10 Essential (primary) hypertension; E03.9 Hypothyroidism, unspecified; J45.909 Unspecified asthma, uncomplicated
CPT/HCPCS: 81001; 87086; 99212; 99214; G0463

== ENCOUNTER → 2023-06-03 13:45 | Outpatient (CLI) | payer OTHER, SELFPAY ==
[2023-06-03 13:25] LABS: Alanine Aminotransferase 30 U/L (12-78); Albumin Level 4.2 g/dl (3.5-5.0); Albumin/Globulin Ratio 1.4 (1.1-1.8); Alkaline Phosphatase 62 U/L (38-126); Anion Gap 14.4 mEq/L (5-15); Aspartate Amino Transferase 29 U/L (14-36); Bilirubin,Total 0.6 mg/dl (0.2-1.3); Blood Urea Nitrogen 9 mg/dl (7-17); Calcium 9.4 mg/dl (8.4-10.2); Carbon Dioxide 28 mmol/L (22.0-30.0); Chloride 103 mmol/L (98-107); Chol/HDL Ratio 6.1 (1-3.5); Cholesterol 249 mg/dl (140-200); Estimated Glomerular Filt Rate 104 ml/min (>60); GFR (African American) 126 ML/MIN (>60); Glucose 97 mg/dl (74-100); HDL Cholesterol 41 mg/dl (40-60); Magnesium 2.1 mg/dl (1.6-2.3); Potassium 4.4 mmoL/L (3.5-5.1); Sodium 141 mmol/L (136-145); Total Protein,Serum 7.2 g/dl (6.3-8.2); Triglycerides 343 mg/dl (30-150); VLDL Cholesterol 69 mg/dL (0-40)
[2023-06-03 13:37] LABS: Direct LDL Cholesterol 58.68 mg/dL (100-129)
[2023-06-03 13:43] LABS: T4 (Thyroxine) 6.2 ug/dl (5.53-11.0)
[2023-06-03 13:57] LABS: Thyroid Stimulating Hormone 4.34 uIU/mL (0.465-4.68)
[2023-06-04 20:32] LABS: Triiodothyronine (T3) Free 3.3 pg/mL (2.0-4.4)
[2023-06-11 06:08] LABS: 1,25 Dihydroxy Vitamin D 43 pg/mL (.); 1,25-Dihydroxy, Vitamin D-2 <10 pg/mL (.); 1,25-Dihydroxy, Vitamin D-3 43 pg/mL (.)
== END ==
PROVIDERS: PCP Nurse Practitioner Family; Visit Provider Nurse Practitioner Family
DX: R30.0 Dysuria (principal); K21.9 Gastro-esophageal reflux disease without esophagitis; E03.9 Hypothyroidism, unspecified; E55.9 Vitamin D deficiency, unspecified; E78.5 Hyperlipidemia, unspecified; I10 Essential (primary) hypertension; A41.81 Sepsis due to Enterococcus
CPT/HCPCS: 80053; 80061; 82652; 83735; 84436; 84443; 84481; 87086; 87088; 87186

== ENCOUNTER → 2023-06-11 11:40 | Outpatient (CLI) | payer OTHER, SELFPAY ==
[2023-06-11 12:09] LABS: Basophils % 0.5 % (0.1-2.0); Eosinophils # 0.1 K/mm3 (0.0-0.4); Eosinophils % 1.7 % (0.1-12.0); Hematocrit 42.8 % (37.0-47.0); Hemoglobin 13.8 g/dL (12.2-16.2); Lymphocytes # 2.7 K/mm3 (0.7-4.5); Lymphocytes % 37.2 % (10-50); Mean Corpuscular HGB Conc 32.3 g/dL (31.8-35.4); Mean Corpuscular Hemoglobin 30.7 pg (27.0-31.2); Mean Corpuscular Volume 94.9 fl (81-99); Mean Platelet Volume 9.9 fl (7.4-10.4); Monocytes # 0.4 K/mm3 (0.1-1.0); Monocytes % 5.4 % (1.7-9.3); Neutrophils % 55.3 % (37.0-80.0); Platelet Count 238 K/mm3 (142-424); Red Blood Count 4.51 M/mm3 (4.20-5.40); Red Cell Distribution Width 13.1 % (11.5-17.5); White Blood Count 7.2 K/mm3 (4.8-10.8)
[2023-06-18 00:07] LABS: IgG P18 Ab. Absent (.); IgG P23 Ab. Absent (.); IgG P28 Ab. Absent (.); IgG P30 Ab. Absent (.); IgG P39 Ab. Absent (.); IgG P41 Ab. Absent (.); IgG P45 Ab. Absent (.); IgG P58 Ab. Absent (.); IgG P66 Ab. Absent (.); IgG P93 Ab. Absent (.); IgM P23 Ab. Absent (.); IgM P39 Ab. Absent (.); IgM P41 Ab. Absent (.); Lyme IgG WB Interp. Negative (.); Lyme IgM WB Interp. Negative (.)
[2023-06-19 08:16] LABS: Antinuclear Antibodies (ANA) Negative
== END ==
PROVIDERS: PCP Nurse Practitioner Family; Visit Provider Nurse Practitioner Family
DX: M25.50 Pain in unspecified joint (principal)
CPT/HCPCS: 36415; 85025; 86038; 86225; 86235; 86617; 87086

== ENCOUNTER → 2023-07-17 12:00 | Outpatient (CLI) | payer OTHER, SELFPAY | PROVIDERS: PCP Nurse Practitioner Family; Visit Provider Nurse Practitioner Family | DX: R82.90 Unspecified abnormal findings in urine (principal); B95.2 Enterococcus as the cause of diseases classified elsewhere; B96.89 Other specified bacterial agents as the cause of diseases classified elsewhere | CPT/HCPCS: 87086 ==

== ENCOUNTER → 2023-08-08 10:08 | Outpatient (CLI) | payer OTHER, SELFPAY ==
[2023-08-08 10:11] LABS: Basophils % 0.4 % (0.1-2.0); Eosinophils # 0.1 K/mm3 (0.0-0.4); Eosinophils % 1.1 % (0.1-12.0); Hematocrit 41.6 % (37.0-47.0); Hemoglobin 13.8 g/dL (12.2-16.2); Lymphocytes # 2.7 K/mm3 (0.7-4.5); Lymphocytes % 48.5 % (10-50); Mean Corpuscular HGB Conc 33.2 g/dL (31.8-35.4); Mean Corpuscular Hemoglobin 31.1 pg (27.0-31.2); Mean Corpuscular Volume 93.5 fl (81-99); Mean Platelet Volume 9.5 fl (7.4-10.4); Monocytes # 0.3 K/mm3 (0.1-1.0); Monocytes % 5.7 % (1.7-9.3); Neutrophils # 2.5 K/mm3 (1.8-7.8); Neutrophils % 44.3 % (37.0-80.0); Platelet Count 209 K/mm3 (142-424); Red Blood Count 4.45 M/mm3 (4.20-5.40); Red Cell Distribution Width 12.7 % (11.5-17.5); White Blood Count 5.6 K/mm3 (4.8-10.8)
[2023-08-08 10:39] LABS: Erythrocyte Sedimentation Rate 15 mm/hr (0-30)
[2023-08-08 11:08] LABS: Alanine Aminotransferase 60 U/L (12-78); Albumin Level 4.6 g/dl (3.5-5.0); Albumin/Globulin Ratio 1.5 (1.1-1.8); Alkaline Phosphatase 63 U/L (38-126); Anion Gap 10.9 mEq/L (5-15); Aspartate Amino Transferase 42 U/L (14-36); Bilirubin,Total 0.5 mg/dl (0.2-1.3); Blood Urea Nitrogen 15 mg/dl (7-17); Calcium 9.3 mg/dl (8.4-10.2); Carbon Dioxide 30 mmol/L (22.0-30.0); Chloride 101 mmol/L (98-107); Estimated Glomerular Filt Rate 104 ml/min (>60); GFR (African American) 126 ML/MIN (>60); Glucose 92 mg/dl (74-100); Potassium 3.9 mmoL/L (3.5-5.1); Sodium 138 mmol/L (136-145); Total Protein,Serum 7.6 g/dl (6.3-8.2); Uric Acid 4.8 mg/dl (2.5-6.2)
[2023-08-08 11:25] LABS: 25-OH Vitamin D, Total 44.8 ng/mL (30-100)
[2023-08-08 11:26] LABS: Free T4 (Free Thyroxine) 1.51 ng/dl (0.78-2.19)
[2023-08-08 11:41] LABS: Thyroid Stimulating Hormone 0.02 uIU/mL (0.465-4.68)
[2023-08-09 09:12] LABS: RA Latex Turbid. 15.2 IU/mL (<14.0); Triiodothyronine (T3) Free 3.6 pg/mL (2.0-4.4)
[2023-08-10 17:46] LABS: Antinuclear Antibodies, IFA Negative (.)
[2023-08-14 02:08] LABS: Vitamin K1 1.35 ng/mL (0.10-2.20)
== END ==
PROVIDERS: PCP Nurse Practitioner Family; Visit Provider Nurse Practitioner Family
DX: E03.9 Hypothyroidism, unspecified (principal); M25.50 Pain in unspecified joint; M79.10 Myalgia, unspecified site; R22.9 Localized swelling, mass and lump, unspecified; R23.3 Spontaneous ecchymoses; E55.9 Vitamin D deficiency, unspecified
CPT/HCPCS: 80053; 82306; 84439; 84443; 84481; 84550; 84597; 85025; 85651; 86038; 86431

== ENCOUNTER → 2023-08-29 08:04 | Outpatient (CLI) | payer OTHER, SELFPAY | LOC: LAB.DROPOF 08-30 08:05 | PROVIDERS: PCP Nurse Practitioner Family; Visit Provider Student in an Organized Health Care Education/Training Program | DX: J02.9 Acute pharyngitis, unspecified (principal) | CPT/HCPCS: 87635 ==

== ENCOUNTER 2023-09-24 18:10 | Outpatient (CLI) | payer OTHER, SELFPAY ==
[2023-09-24 17:53] LABS: Coronavirus 19, PCR Not Detected (NotDetected); Coronavirus 229E Not Detected (NotDetected); Coronavirus NL63 Not Detected (NotDetected); Coronavirus OC43 Not Detected (NotDetected); Coronovirus HKU1,PCR Not Detected (NotDetected); Human Metapneumovirus Not Detected (NotDetected); Influenza A, PCR Not Detected (NotDetected); Influenza AH1, 2009 Not Detected (NotDetected); Influenza AH1, PCR Not Detected (NotDetected); Influenza AH3,PCR Not Detected (NotDetected); Influenza B, PCR Not Detected (NotDetected); Parainfluenza 1, PCR Not Detected (NotDetected); Parainfluenza 2, PCR Not Detected (NotDetected); Parainfluenza 3, PCR Not Detected (NotDetected); Parainfluenza 4, PCR Not Detected (NotDetected); Respiratory Syncytial Virus Not Detected (NotDetected); Rhinovirus/Enterovirus Not Detected (NotDetected)
[2023-09-24 21:36] LABS: Adenovirus,PCR Not Detected (NotDetected)
== END 2023-09-24 23:59 ==
LOC: LAB.DROPOF 18:10
PROVIDERS: PCP Nurse Practitioner Family; Visit Provider Nurse Practitioner Family
DX: R05.9 Cough, unspecified (principal); R09.81 Nasal congestion; H92.02 Otalgia, left ear
CPT/HCPCS: 87632; 87635

== ENCOUNTER 2023-10-31 16:13 | Emergency (ER) | payer OTHER, SELFPAY ==
[2023-10-31 17:25] VITALS: BP 149/86; PULSE 86; RESP 19; TEMP 36.8; O2SAT 100; BMI 29.5
--- NOTE | 2023-10-31 17:33 | ED_ITS ---
Discharge Plan Disposition Patient Disposition: Home, Self-Care Condition: Good Prescriptions Prescriptions: New prednisone 10 mg tablet 10 mg PO DIRECTED 9 Days Qty: 21 0RF Rx Instructions: Take 4 tablets daily for 3 days, then take 2 tablets daily for 3 days, then take 1 tablet daily for 3 days, then stop. benzonatate [benzonatate] 100 mg capsule 100 mg PO TIDP PRN (Reason: Cough) Qty: 30 0RF albuterol sulfate [Ventolin HFA] 90 mcg/actuation HFA aerosol inhaler 2 puff inhalation Q6H PRN (Reason: shortness of breath or wheezing) Qty: 6.7 5RF azithromycin [Zithromax] 250 mg tablet 250 mg PO UD DOSE PK Qty: 6 0RF Rx Instructions: Take two (2) tablets today, then one (1) tablet days #2 thru #5 No Action furosemide [Lasix] 20 mg tablet 20 mg PO DAILY PRN (Reason: edema) Qty: 30 2RF azelastine 137 mcg (0.1 %) aerosol,spray 2 spray intranasal BID Qty: 30 2RF Rx Instructions: administer into each nostril albuterol sulfate 90 mcg/actuation HFA aerosol inhaler 1 inh inhalation QID Qty: 6.7 2RF amoxicillin-pot clavulanate 875-125 mg tablet 1 tab PO BID 10 Days Qty: 20 0RF fluticasone propion-salmeterol [Advair Diskus] 500-50 mcg/dose blister with device 1 inh inhalation BID Qty: 60 2RF ciclopirox 8 % solution 1 applic topical HS 28 Days Qty: 6.6 1RF loratadine [Allergy Relief (loratadine)] 10 mg tablet 10 mg PO DAILY PRN (Reason: allergic symptoms) 30 Days Qty: 30 2RF Creon 36,000-114,000- 180,000 unit capsule,delayed release(DR/EC) 1 cap PO BID Rx Instructions: administer with meals and/or snacks omeprazole 40 mg capsule,delayed release(DR/EC) 40 mg PO DAILY levothyroxine 75 mcg tablet 75 mcg PO DAILY 30 Days Qty: 30 2RF Referrals Follow up/Referrals: Zandra Dallas APRN [Primary Care Provider] - See instructions Activity Restrictions/Add. Instructions Additional Instructions/Restrictions: Drink plenty of fluids. Take tylenol or ibuprofen for pain or fever. Take the medications as directed. Follow up with your regular doctor. GO TO THE ER FOR ANY WORSENING SYMPTOMS Don't start the oral steroids (prednisone) until tomorrow since you had the steroid shot here today. Clinical Impressions Clinical Impression: Asthma exacerbation Instructions Patient Instructions: Asthma -- Adult, Prednisone, Dexamethasone Injection Discharge ED Provider: Danis Burgos [facility] [place] HPI General Stated complaint: viet, viet Time Seen by Provider: 10/31/23 17:33 History of Present Illness Provider Complaint: She states that for the past 5 days she has had worsening sinus and chest congestion. She has a history of asthma. Related Data Home Medications Medication Instructions Recorded Confirmed [id number]-[id number] 1 cap PO BID pancreas 04/18/22 10/20/23 36,000-114,000-180,000 unit capsule,delay rel (Creon) omeprazole 40 mg capsule,delayed 40 mg PO DAILY GERD 04/18/22 10/20/23 release Previous Rx's Medication Instructions Recorded azelastine 137 mcg (0.1 %) nasal 2 spray intranasal BID #30 mL 04/28/23 spray aerosol furosemide 20 mg tablet (Lasix) 20 mg PO DAILY PRN edema #30 tabs 06/03/23 levothyroxine 75 mcg tablet 75 mcg PO DAILY 30 days #30 tabs 08/19/23 albuterol sulfate 90 mcg/actuation 1 inh inhalation QID #6.7 grams 08/29/23 aerosol inhaler amoxicillin 875 mg-potassium 1 tab PO BID 10 days #20 tabs 10/10/23 clavulanate 125 mg tablet ciclopirox 8 % topical solution 1 applic topical HS 4 weeks #6.6 mL 10/21/23 fluticasone 500 mcg-salmeterol 50 1 inh inhalation BID #60 ea 10/21/23 mcg/dose blistr powdr for inhalation (Advair Diskus) loratadine 10 mg tablet (Allergy 10 mg PO DAILY PRN allergic 10/27/23 Relief (loratadine)) symptoms 30 days #30 tabs albuterol sulfate 90 mcg/actuation 2 puff inhalation Q6H PRN 10/31/23 aerosol inhaler (Ventolin HFA) shortness of breath or wheezing #6.7 grams azithromycin 250 mg tablet 250 mg PO UD DOSE PK #6 tabs 10/31/23 (Zithromax) benzonatate 100 mg capsule 100 mg PO TIDP PRN Cough #30 caps 10/31/23 prednisone 10 mg tablet 10 mg PO DIRECTED 9 days #21 10/31/23 tabs Allergies Allergy/AdvReac Type Severity Reaction Status Date / Time nickel [NICKEL] Allergy Unknown I-RASH Verified 10/20/23 11:41 silver Allergy Unknown Blister Verified 10/20/23 11:41 [From Tegaderm AG Mesh] [facility] Disclaimer: The information contained in this section may have been updated after the patient was seen, as this information can be updated by other users. Medical History (Updated 10/31/23 @ 18:06 by Danis Burgos APRN) Abnormal bruising Abnormal urine odor Asthma Atypical chest pain Bilateral flank pain Burning with urination Conjunctivitis Cough Dermatitis Diabetes Dysfunction of left eustachian tube Dyspnea Dysuria Ear ache Eustachian tube dysfunction Frequent infections of left ear GERD (gastroesophageal reflux disease) Hematuria Hyperlipidemia Hypertension Hypothyroid Itching of ear Left serous otitis media Myalgia No significant past medical history Otalgia, left ear Otitis media Otitis media Sinus infection Sinusitis Skin lumps Sore throat Suprapubic pain Tinnitus URI (upper respiratory infection) Surgical History History of breast biopsy History of colonoscopy History of esophagogastroduodenoscopy (EGD) Family History Mother Hypertension Sister Hypertension Other No significant family history Social History Smoking Status: Never smoker alcohol intake: never substance use type: denies use current occupational status: other Travel in the last 8 weeks: None household members: spouse housing: house caffeine: Yes ROS Obtained: Yes All systems reviewed & no additional complaints except as documented Constitutional Constitutional: Reports poor appetite Eyes Eyes: Reports system reviewed and no additional complaints, except as documented ENT Ears, Nose, Mouth, and Throat: Reports as per HPI Cardiovascular Cardiovascular: Reports system reviewed and no additional complaints, except as documented and Denies chest pain Respiratory Respiratory: Denies shortness of breath, Reports chest congestion, Reports cough, Denies stridor and Reports wheezing Gastrointestinal Gastrointestingal: Reports system reviewed and no additional complaints, except as documented; Denies abdominal pain, diarrhea or vomiting Musculoskeletal Musculoskeletal: Reports system reviewed and no additional complaints, except as documented and Denies arthralgias Integumentary/Breasts Skin/Breast: Reports system reviewed and no additional complaints, except as documented and Denies rash Neurologic Neurologic: Denies paresthesias Allergic/Immunologic Allergic/Immunologic: Reports wheezing Physical Exam General General appearance: alert and in no apparent distress Eye Eye exam: Present normal appearance, PERRL and EOMI ENT ENT exam: Present mucous membranes moist and normal external ear exam Expanded ENT Exam External ear exam: Present normal external inspection TM/Canal exam: Bilateral TM: erythema and bulging Nose exam: Absent sinus tenderness Nasal speculum exam: Bilateral: normal Mouth exam: Present normal external inspection; Absent drooling Teeth exam: Present normal inspection Throat exam: Present tonsillar erythema and tonsillomegaly Neck Neck exam: Present normal inspection, full ROM and trachea midline; Absent tenderness, lymphadenopathy or thyromegaly Chest Chest inspection: Present normal inspection and symmetric chest wall rise; Absent tenderness or rash Respiratory Respiratory exam: Present normal lung sounds bilaterally; Absent respiratory distress, wheezes, stridor or accessory muscle use Cardiovascular Cardiovascular exam: Present regular rate, normal rhythm and normal heart sounds Abdominal Exam Abdominal exam: Present soft; Absent distention, tenderness, guarding, rebound or rigidity Extremities Exam Extremities exam: Present normal inspection, full ROM and normal capillary refill; Absent tenderness or calf tenderness Back Exam Back exam: Present normal inspection and full ROM; Absent tenderness Neurological Exam Neurological exam: Present alert and oriented X3 Psychiatric Psychiatric exam: Present normal affect and normal mood Skin Skin exam: Present warm, dry, intact and normal color Lymphatic Lymphatic Findings: no adenopathy Medical Decision Making Medical Records Medical records reviewed: No I reviewed the patient's medical records. Ashok Inquiry Pt receiving controlled substance: No Lab Data Lab results reviewed: Yes I reviewed the patient's lab results.
[2023-10-31] MEDS: DEXAMETHASONE 4MG/ML 1ML VIAL 8 MG IM (17:54)
[2023-10-31 18:12] VITALS: BP 149/86; PULSE 86; RESP 19; TEMP 36.8; O2SAT 100
== END 2023-10-31 18:16 | disposition home or self-care (01) ==
PROVIDERS: Emergency Provider Nurse Practitioner Family; PCP Nurse Practitioner Family
DX: J45.901 Unspecified asthma with (acute) exacerbation (principal); R09.81 Nasal congestion; K21.9 Gastro-esophageal reflux disease without esophagitis; E78.5 Hyperlipidemia, unspecified; I10 Essential (primary) hypertension; E03.9 Hypothyroidism, unspecified
CPT/HCPCS: 96372; 99212; 99214; G0463

== ENCOUNTER 2023-11-04 16:47 | Outpatient (CLI) | payer OTHER, SELFPAY ==
--- NOTE | 2023-11-04 16:57 | XR_ITS ---
PROCEDURE INFORMATION: Exam: XR Chest Exam date and time: 11/04/2023 4:57 PM Age: 58 years old Clinical indication: Condition or disease; Other: Asthma; Additional info: Thoracic back pain, asthma TECHNIQUE: Imaging protocol: Radiologic exam of the chest. Views: 2 views. COMPARISON: 1. CT CHEST W CON 05/15/2022 2:31 PM 2. CR XR CHEST PORTABLE 03/29/2022 5:20 PM FINDINGS: Tubes, catheters and devices: Surgical clips overlie the right chest wall. Lungs: Minimal curvilinear subsegmental atelectasis/scarring in the left lung base. Lungs are otherwise clear. No pulmonary edema or consolidation. Pleural spaces: No pleural effusion. No pneumothorax. Heart/Mediastinum: Cardiomediastinal silhouette is normal. Bones/joints: No acute abnormality. IMPRESSION: No acute cardiopulmonary disease.
== END 2023-11-04 23:59 ==
LOC: RAD 16:48
PROVIDERS: PCP Nurse Practitioner Family; Visit Provider Nurse Practitioner Family
DX: J45.901 Unspecified asthma with (acute) exacerbation (principal)
CPT/HCPCS: 71046

== ENCOUNTER 2023-11-18 18:07 | Outpatient (CLI) | payer OTHER, SELFPAY ==
[2023-11-18 19:49] LABS: Free T4 (Free Thyroxine) 1.02 ng/dl (0.78-2.19)
[2023-11-18 20:06] LABS: Thyroid Stimulating Hormone 0.73 uIU/mL (0.465-4.68)
== END 2023-11-18 23:59 ==
LOC: LAB.DROPOF 18:08
PROVIDERS: PCP Nurse Practitioner Family; Visit Provider Nurse Practitioner Family
DX: E03.9 Hypothyroidism, unspecified (principal); R30.0 Dysuria; B96.1 Klebsiella pneumoniae [K. pneumoniae] as the cause of diseases classified elsewhere
CPT/HCPCS: 84439; 84443; 84481; 87086

== ENCOUNTER 2024-01-13 15:34 | Outpatient (CLI) | payer OTHER, SELFPAY ==
[2024-01-13 15:54] LABS: Basophils # 0.1 K/mm3 (0-0.2); Basophils % 0.9 % (0.1-2.0); Eosinophils # 0.2 K/mm3 (0.0-0.4); Eosinophils % 2.1 % (0.1-12.0); Hematocrit 42.3 % (37.0-47.0); Hemoglobin 13.9 g/dL (12.2-16.2); Lymphocytes # 3.1 K/mm3 (0.7-4.5); Lymphocytes % 34.2 % (10-50); Mean Corpuscular Hemoglobin 31.5 pg (27.0-31.2); Mean Corpuscular Volume 95.7 fl (81-99); Mean Platelet Volume 9.3 fl (7.4-10.4); Monocytes # 0.6 K/mm3 (0.1-1.0); Neutrophils % 55.8 % (37.0-80.0); Platelet Count 237 K/mm3 (142-424); Red Blood Count 4.42 M/mm3 (4.20-5.40); Red Cell Distribution Width 13.8 % (11.5-17.5); White Blood Count 8.9 K/mm3 (4.8-10.8)
[2024-01-13 16:13] LABS: D-Dimer < 0.25 ug/mL (0.0-0.5)
[2024-01-13 17:22] LABS: Chloride 100 mmol/L (98-107); Potassium 3.8 mmoL/L (3.5-5.1); Sodium 139 mmol/L (136-145)
[2024-01-13 17:24] LABS: Alanine Aminotransferase 48 U/L (12-78); Anion Gap 12.8 mEq/L (5-15); Aspartate Amino Transferase 32 U/L (14-36); Bilirubin,Unconjugated 0.3 mg/dL (0.0-1.1); Blood Urea Nitrogen 15 mg/dl (7-17); Carbon Dioxide 30 mmol/L (22.0-30.0); Estimated Glomerular Filt Rate 87 ml/min (>60); GFR (African American) 105 ML/MIN (>60)
[2024-01-13 17:25] LABS: Albumin Level 4.5 g/dl (3.5-5.0); Alkaline Phosphatase 65 U/L (38-126); Bilirubin,Direct 0.3 mg/dl (0.0-0.4); Bilirubin,Indirect 0.3 mg/dL (0.0-0.9); Bilirubin,Total 0.6 mg/dl (0.2-1.3); Calcium 9.8 mg/dl (8.4-10.2); Glucose 90 mg/dl (74-100); HDL Cholesterol 70 mg/dl (40-60); Total Protein,Serum 7.3 g/dl (6.3-8.2)
[2024-01-13 17:28] LABS: Chol/HDL Ratio 4.6 (1-3.5); Triglycerides 473 mg/dl (30-150)
[2024-01-13 17:35] LABS: NT Pro Brain Natriuretic Pep. < 20.0 pg/mL (0-125)
[2024-01-13 17:36] LABS: Direct LDL Cholesterol 77.46 mg/dL (100-129)
[2024-01-13 17:38] LABS: Cholesterol 345 mg/dl (140-200)
[2024-01-13 17:57] LABS: Thyroid Stimulating Hormone 0.48 uIU/mL (0.465-4.68)
== END 2024-01-13 23:59 | disposition home or self-care (01) ==
LOC: LAB 15:35
PROVIDERS: PCP Nurse Practitioner Family; Visit Provider Internal Medicine
DX: K21.9 Gastro-esophageal reflux disease without esophagitis (principal); I10 Essential (primary) hypertension; E78.2 Mixed hyperlipidemia; R06.09 Other forms of dyspnea; R07.89 Other chest pain
CPT/HCPCS: 36415; 80048; 80061; 80076; 83880; 84439; 84443; 85025; 85378

== ENCOUNTER 2024-01-20 12:11 | Outpatient (CLI) | payer OTHER, SELFPAY ==
[2024-01-20] VITALS (14 sets, daily range): BP systolic 127–155; BP diastolic 66–92; PULSE 58–76; RESP 16–18; TEMP 36.7; O2SAT 97–100; BMI 29.2
--- NOTE | 2024-01-20 12:12 | CT_ITS ---
APPROVED REPORT Bartacker: CLINICAL INDICATION Chest Pain TECHNIQUE Image Acquisition: A 128 slice MDCT scanner ([employer] View) was used for data acquisition. A noncontrast coronary calcium scan was performed. A CT attenuation threshold of 130 Hounsfield units (HU) was used for the detection of calcium in contiguous voxels of 1 sq mm in area to be counted as individual lesions. Bolus tracking in the ascending aorta with a threshold of 180 HU was performed. Immediately afterwards, ECG synchronized cardiac CT was then performed from the cardiac base to apex using retrospective gating with ECG tube current modulation. A total of 85 mL of Isovue 370 mg/mL contrast medium was administered at 5 mL/sec followed by a saline flush using a biphasic injection protocol. A tube voltage of 120 KVp was used. The patient received the following medications prior to the cardiac CT. 75 mg of oral metoprolol 15 mg of oral ivabradine 0.8 mg of sublingual nitroglycerin The average heart rate at the time of acquisition was 60 bpm and regular. Image Reconstruction Transaxial images were reconstructed at 0.67 mm slide thickness. Data was reviewed interactively on an advanced workstation capable of 2 and 3-dimensional displays in all conventional reconstruction formats, including multiplanar reformations, maximum intensity projections, curved multiplanar reformations, and volume rendered reconstructions. When applicable, selected routine images describing the relevant coronary anatomy and pathology were saved and sent to PACS. Complications None Technical Quality Overall image quality was suboptimal due to significant motion. Coronary artery opacification was adequate. Total DLP (Dose-Length Product) is 1484.8 mGy-cm. The reported value represents the total of one or more individual components during the CT acquisition of this date and at this time, and as such, the same value may appear in more than one CT report depending on the interpreting/reporting physicians. COMPARISON None FINDINGS CT Coronary Calcium Scoring LMA (Left Main Artery) = 0 LAD (Left Anterior Descending) = 0 LCX (Left Coronary Circumflex) = 0 RCA (Right Coronary Artery) = 0 Total Calcium Score = 0 using the AJ-130 method. The interpretation of the calcium heart score is based on the following continuum*: 0 = no calcified plaque detected (risk of coronary artery disease is very low ??? less than 5%) 1-10 = calcium detected in extremely minimal levels (risk of coronary diseases is still low ??? less than 10%) 11-100 = mild levels of plaque detected with certainty (mild or minimal narrowing of heart arteries is likely) 101-400 = definite,at least moderate levels of plaque detected (relatively high risk of a heart attack within 3-5 years) >401-999 = extensive levels of plaque detected (high risk of heart attack, high levels of vascular disease are present, high likelihood of at least one significant coronary narrowing) *The calcium heart score quantifies the burden of coronary calcification/plaque in the coronary arteries. The calcium heart score is not able to evaluate the presence or burden of non-calcified (i.e. soft) plaque. There is no identifiable calcification in the aortic valve, mitral annulus or mitral valve, pericardium, or myocardium. Coronary CT Angiography The coronary arterial system is right dominant. Quantitative Stenosis Grading: Left Main (LM): The left main originates normally from the left sinus of Valsalva. The LM bifurcates into the left anterior descending artery and left circumflex artery. The LM is patent with no evidence of atherosclerosis. Left Anterior Descending (LAD) and Diagonal Branches: The LAD gives off 3 diagonal branch(es). The LAD and its branches are patent with no evidence of atherosclerosis. There is no evidence of LAD-myocardial bridge. Left Circumflex (LCX) and Obtuse Marginals (OM): The LCX gives off 2 Obtuse Marginal (OM) branch(es). The LCX and its branches are patent with no evidence of atherosclerosis. Right Coronary Artery (RCA): The RCA originates normally from the right sinus of Valsalva. The RCA gives off a posterior descending artery (PDA) and posterolateral (PL) branches. The RCA and its branches are patent with no evidence of atherosclerosis. Non-Coronary Cardiac Findings: Analysis of the left ventricular (LV) structure and function was performed after 3-D reconstruction of the LV from axial images, with user-corrected automatic contouring for assessment of LV volumes and user-defined reconstruction from oblique planes for measurement of 3-D cardiac structure and function. -The left ventricle systolic function is normal. -There is no left atrial appendage filling defect. Two right pulmonary veins and two left pulmonary veins drain normally into the left atrium. -No pericardial thickening or calcification. -Central and branch pulmonary arteries in the [id number] are unremarkable. -Thoracic aorta within the visualized thoracic aortic-branches in the [id number] is unremarkable. Extracardiac Structures No significant extra-cardiac findings. Note, however, that this study is focused on the cardiac findings. IMPRESSION -No coronary calcification with an Agatston score = 0 using the AJ-130 method. -No evidence of significant flow-limiting atherosclerosis of the coronary arteries. -CAD-RADS 0. Management recommendations per ACC/AHA guidelines*, as clinically appropriate. *Recommendations: CAD RADS 0: Reassurance. Consider non-atherosclerotic causes of chest pain. CAD RADS 1: Consider non-atherosclerotic causes of chest pain. Consider preventive therapy and risk factor modification. CAD RADS 2: Consider non-atherosclerotic causes of chest pain. Consider preventive therapy and risk factor modification, particularly for patients with nonobstructive plaque in multiple segments. CAD RADS 3: Consider further functional testing. Consider symptom-guided anti-ischemic and preventive pharmacotherapy as well as risk factor modification per published guideline statements. CAD RADS 4A: Consider further functional testing or invasive coronary angiography with revascularization per published guideline statements. Consider symptom-guided anti-ischemic and preventive pharmacotherapy as well as risk factor modification per published guideline statements. CAD RADS 4B: Invasive coronary angiography recommended with revascularization per published guideline statements. Consider symptom-guided anti-ischemic and preventive pharmacotherapy as well as risk factor modification per published guideline statements. CAD RADS 5: Consider invasive angiography and/or viability assessment with revascularization per published guideline statements. Consider symptom-guided anti-ischemic and preventive pharmacotherapy as well as risk factor modification per published guideline statements. CRITICAL RESULT None COMMUNICATION Per this written report The coronary and cardiac findings of this CCTA were reviewed, reported, and signed by Chin Cifuentes MD (Mechanical Project Engineer) Conclusion Electronically signed by : Awilda Cifuentes MD 01/22/2024 13:34:33
[2024-01-20] MEDS: METOPROLOL TARTRATE 50MG TABLET PO (13:25)
[2024-01-20] MEDS: METOPROLOL TARTRATE 25MG TABLET 25 MG (13:25)
[2024-01-20] MEDS: IVABRADINE HCL 7.5MG TABLET PO (13:25)
[2024-01-20] MEDS: NITROGLYCERIN 0.4MG SL TABLET SL (14:21)
[2024-01-20] MEDS: IOPAMIDOL-370 (76%);100ML BOTTLE 85 ML IV (14:37)
[2024-01-20] MEDS: SODIUM CHLORIDE 0.9% 10ML SYR (RAD ONLY) 10 ML IV (14:37)
[2024-01-20] MEDS: 0.9 % SODIUM CHLORIDE 50 ML VIAL IV (14:37)
== END 2024-01-20 14:39 | disposition home or self-care (01) ==
PROVIDERS: PCP Nurse Practitioner Family; Visit Provider Internal Medicine
DX: R07.89 Other chest pain (principal); R06.09 Other forms of dyspnea; I10 Essential (primary) hypertension; E78.2 Mixed hyperlipidemia
CPT/HCPCS: 75571; 75574; Q9967

== ENCOUNTER 2024-03-22 13:49 | Outpatient (CLI) | payer OTHER, SELFPAY ==
[2024-03-22 21:58] LABS: Alanine Aminotransferase 51 U/L (12-78); Albumin Level 4.2 g/dl (3.5-5.0); Albumin/Globulin Ratio 1.4 (1.1-1.8); Alkaline Phosphatase 60 U/L (38-126); Anion Gap 9.5 mEq/L (5-15); Aspartate Amino Transferase 41 U/L (14-36); Bilirubin,Total 0.5 mg/dl (0.2-1.3); Blood Urea Nitrogen 12 mg/dl (7-17); Calcium 9.7 mg/dl (8.4-10.2); Carbon Dioxide 30 mmol/L (22.0-30.0); Chloride 105 mmol/L (98-107); Estimated Glomerular Filt Rate 87 ml/min (>60); GFR (African American) 105 ML/MIN (>60); Globulin 2.9 g/dL (1.3-3.2); Glucose 91 mg/dl (74-100); HDL Cholesterol 37 mg/dl (40-60); Potassium 4.5 mmoL/L (3.5-5.1); Sodium 140 mmol/L (136-145); Total Protein,Serum 7.1 g/dl (6.3-8.2)
[2024-03-22 22:10] LABS: Direct LDL Cholesterol 45.51 mg/dL (100-129)
[2024-03-22 22:23] LABS: Chol/HDL Ratio 11.8 (1-3.5); Cholesterol 437 mg/dl (140-200); Triglycerides 987 mg/dl (30-150)
[2024-03-22 22:29] LABS: Thyroid Stimulating Hormone 0.69 uIU/mL (0.465-4.68)
== END 2024-03-22 23:59 | disposition home or self-care (01) ==
LOC: LAB.DROPOF 03-23 08:17
PROVIDERS: PCP Nurse Practitioner Family; Visit Provider Nurse Practitioner Family
DX: E03.9 Hypothyroidism, unspecified (principal); E78.2 Mixed hyperlipidemia; R39.15 Urgency of urination
CPT/HCPCS: 80053; 80061; 84436; 84443; 84481; 87086; 87088; 87186

== ENCOUNTER 2024-04-02 16:19 | Outpatient (CLI) | payer OTHER, SELFPAY ==
--- NOTE | 2024-04-02 16:20 | MM_ITS ---
PROCEDURE INFORMATION: Exam: MG Bilateral Screening 3D Mammography Exam date and time: 04/02/2024 4:10 PM Age: 58 years old Clinical indication: Screening examination TECHNIQUE: Imaging protocol: Bilateral Screening tomosynthesis and 2D mammography including computer-aided detection (CAD) when performed. COMPARISON: 1. MG MM DIG SCREENING MAMM BI W/CAD 02/27/2023 7:51 AM 2. MG MM DIG MAMM DX UNILAT RT CAD 07/08/2022 1:00 PM FINDINGS: MAMMOGRAPHY: Breast composition: There are scattered areas of fibroglandular density. Mass: None. Architectural distortion: None. Calcifications: No suspicious calcifications. Asymmetric density: None. Skin thickening: None. Axillary adenopathy: None. IMPRESSION: No mammographic evidence of malignancy. Annual screening is recommended unless otherwise clinically indicated. ASSESSMENT: BI-RADS Category 1: Negative
== END 2024-04-02 23:59 | disposition home or self-care (01) ==
LOC: RAD 16:20
PROVIDERS: PCP Nurse Practitioner Family; Visit Provider Nurse Practitioner Family
DX: Z12.31 Encounter for screening mammogram for malignant neoplasm of breast (principal)
CPT/HCPCS: 77063; 77067

== ENCOUNTER 2024-04-06 10:00 | Outpatient (CLI) | payer OTHER, SELFPAY | END 2024-04-06 23:59 | disposition home or self-care (01) | LOC: LAB.DROPOF 04-07 10:00 | PROVIDERS: PCP Student in an Organized Health Care Education/Training Program; Visit Provider Student in an Organized Health Care Education/Training Program | DX: R05.9 Cough, unspecified (principal) | CPT/HCPCS: 87635 ==

== ENCOUNTER 2024-05-06 13:00 | Outpatient (CLI) | payer OTHER, SELFPAY | END 2024-05-06 23:59 | disposition home or self-care (01) | LOC: LAB.DROPOF 05-07 10:13 | PROVIDERS: PCP Student in an Organized Health Care Education/Training Program; Visit Provider Student in an Organized Health Care Education/Training Program | DX: R39.15 Urgency of urination (principal) | CPT/HCPCS: 87086; 87088; 87186 ==

== ENCOUNTER 2024-05-21 16:04 | Outpatient (CLI) | payer OTHER, SELFPAY | END 2024-05-21 23:59 | disposition home or self-care (01) | LOC: LAB.DROPOF 05-24 09:25 | PROVIDERS: PCP Nurse Practitioner Family; Visit Provider Nurse Practitioner Family | DX: N39.0 Urinary tract infection, site not specified (principal) | CPT/HCPCS: 87086; 87088; 87186 ==

== ENCOUNTER 2024-07-23 16:03 | Outpatient (CLI) | payer OTHER, SELFPAY ==
[2024-07-23 17:30] LABS: Free T4 (Free Thyroxine) 1.05 ng/dl (0.78-2.19)
[2024-07-23 19:56] LABS: T4 (Thyroxine) 8.1 ug/dl (5.53-11.0)
[2024-07-23 20:09] LABS: Thyroid Stimulating Hormone 0.12 uIU/mL (0.465-4.68)
[2024-07-25 08:34] LABS: Thyroid Peroxidase Antibodies 29 IU/mL (0-34); Triiodothyronine (T3) Free 2.8 pg/mL (2.0-4.4)
[2024-07-26 15:18] LABS: Thyroglobulin Level <1.0 IU/mL (0.0-0.9)
== END 2024-07-23 23:59 | disposition home or self-care (01) ==
LOC: LAB.DROPOF 07-26 10:20
PROVIDERS: PCP Nurse Practitioner Family; Visit Provider Nurse Practitioner Family
DX: E03.9 Hypothyroidism, unspecified (principal)
CPT/HCPCS: 84436; 84439; 84443; 84481; 86376; 86800

== ENCOUNTER 2024-08-02 10:07 | Outpatient (CLI) | payer OTHER, SELFPAY ==
--- NOTE | 2024-08-02 10:08 | US_ITS ---
FINAL REPORT TECHNIQUE: Sonographic images of the thyroid gland were obtained in the longitudinal and transverse planes. CLINICAL HISTORY: hypothyroidism COMPARISON: None FINDINGS: The right lobe measures 3.5 x 1.2 x 1.0 cm. The right lobe is homogeneous. There are no cystic or solid nodules. The left lobe measures 4.1 x 1.4 x 1.6 cm. A tiny colloid cyst is seen in the lower pole. No solid lesions identified. There are no cystic or solid nodules. The isthmus measures 2 mm. This is normal. IMPRESSION: Tiny colloid cyst on the left with no concerning abnormality identified. Reviewed, Interpreted and Dictated by Graciela Cornell MD Transcribed by Sarita Soto Authenticated and [facility]
== END 2024-08-02 23:59 | disposition home or self-care (01) ==
LOC: RAD 10:08
PROVIDERS: PCP Nurse Practitioner Family; Visit Provider Nurse Practitioner Family
DX: E03.9 Hypothyroidism, unspecified (principal)
CPT/HCPCS: 76536

== ENCOUNTER 2024-09-06 15:30 | Outpatient (CLI) | payer OTHER, SELFPAY ==
--- NOTE | 2024-09-06 15:35 | US_ITS ---
PROCEDURE: US TRANSVAGINAL CLINICAL INDICATION: Left adnexal Tenderness COMPARISON: US PTV US PELVIS-TRANSVAGINAL ONLY from 04/23/2017 FINDINGS: Transvaginal sonographic images of the pelvis were obtained. UTERUS: 7.0cm x 4.2cmx 3.4cm anteverted with a combined endometrial thickness of 3.2mm. There is a nabothian cyst in the cervix. LEFT OVARY: 1.9 cmx1.2cmx1.4cm with a volume of 1.6ml. RIGHT OVARY: 1.8 cmx 1.1cmx1.2cm with a volume of 1.2ml. Both ovaries are seen and appear normal. Doppler flow to both ovaries are seen. There is no fluid in the cul-de-sac. IMPRESSION: 1. Anteverted uterus normal in shape and size. The endometrium is thin. 2. Both ovaries are seen and appear normal. There is good flow to both ovaries. The ovaries are small appear atrophic. No obvious cause for her left lower quadrant pain. 3. No fluid in the cul-de-sac. Dictated by: Finesse Arrieta MD 09/08/2024 08:23 Finesse Arrieta MD in OV 09/08/2024 08:23
== END 2024-09-06 23:59 | disposition home or self-care (01) ==
LOC: RAD 15:32
PROVIDERS: PCP Nurse Practitioner Family; Visit Provider Obstetrics & Gynecology
DX: R10.2 Pelvic and perineal pain (principal)
CPT/HCPCS: 76830

== ENCOUNTER 2024-11-01 16:31 | Outpatient (CLI) | payer OTHER, SELFPAY ==
[2024-11-01 18:04] LABS: Chol/HDL Ratio 6.7 (1-3.5); Cholesterol 310 mg/dl (140-200); HDL Cholesterol 46 mg/dl (40-60)
[2024-11-01 18:05] LABS: Triglycerides 522 mg/dl (30-150)
[2024-11-01 18:15] LABS: Direct LDL Cholesterol 56.54 mg/dL (100-129)
[2024-11-01 18:20] LABS: T4 (Thyroxine) 6.3 ug/dl (5.53-11.0)
[2024-11-01 18:34] LABS: Thyroid Stimulating Hormone 2.85 uIU/mL (0.465-4.68)
[2024-11-01 19:06] LABS: Free T4 (Free Thyroxine) 0.93 ng/dl (0.78-2.19)
[2024-11-03 14:05] LABS: Triiodothyronine (T3) Free 2.2 pg/mL (2.0-4.4)
== END 2024-11-01 23:59 | disposition home or self-care (01) ==
LOC: LAB.DROPOF 11-02 17:14
PROVIDERS: PCP Nurse Practitioner Family; Visit Provider Nurse Practitioner Family
DX: E03.9 Hypothyroidism, unspecified (principal); E78.5 Hyperlipidemia, unspecified
CPT/HCPCS: 80061; 84436; 84439; 84443; 84481

== ENCOUNTER 2025-01-14 16:13 | Outpatient (CLI) | payer OTHER, SELFPAY ==
--- NOTE | 2025-01-14 16:18 | XR_ITS ---
FINAL REPORT CLINICAL HISTORY: RIGHT FOOT PAIN, NO KNOWN INJURY TO RIGHT FOOT. PAIN IS MOSTLY ON THE MEDIAL SIDE NEAR THE GREAT TOE. COMPARISON: None FINDINGS: AP, oblique and lateral views of the right foot were obtained. There is no acute fracture or dislocation. There is degenerative joint disease at the first MTP joint. There is no acute soft tissue abnormality. IMPRESSION: No acute abnormality of the right foot. Degenerative joint disease first MTP joint. Reviewed, Interpreted and Dictated by Graciela Cornell MD Transcribed by Naomy Sandoval Authenticated and [facility]
== END 2025-01-14 23:59 | disposition home or self-care (01) ==
LOC: RAD 16:14
PROVIDERS: PCP Nurse Practitioner Family; Visit Provider Nurse Practitioner Family
DX: M19.071 Primary osteoarthritis, right ankle and foot (principal)
CPT/HCPCS: 73630

== ENCOUNTER 2025-03-22 16:41 | Outpatient (CLI) | payer OTHER, SELFPAY ==
[2025-03-22 19:14] LABS: Cholesterol 152 mg/dl (140-200); HDL Cholesterol 61 mg/dl (40-60); Triglycerides 201 mg/dl (30-150)
[2025-03-22 19:30] LABS: Free T4 (Free Thyroxine) 1.29 ng/dl (0.78-2.19)
[2025-03-22 19:47] LABS: Thyroid Stimulating Hormone 0.80 uIU/mL (0.465-4.68)
[2025-03-24 05:15] LABS: Triiodothyronine (T3) Free 2.8 pg/mL (2.0-4.4)
== END 2025-03-22 23:59 | disposition home or self-care (01) ==
LOC: LAB.DROPOF 03-23 08:56
PROVIDERS: PCP Nurse Practitioner Family; Visit Provider Nurse Practitioner Family
DX: E03.9 Hypothyroidism, unspecified (principal); E78.2 Mixed hyperlipidemia
CPT/HCPCS: 80061; 84439; 84443; 84481

== ENCOUNTER 2025-04-29 16:36 | Outpatient (CLI) | payer OTHER, SELFPAY | END 2025-04-29 23:59 | disposition home or self-care (01) | LOC: RAD 16:37 | PROVIDERS: PCP Nurse Practitioner Family; Visit Provider Nurse Practitioner Family | DX: Z12.31 Encounter for screening mammogram for malignant neoplasm of breast (principal) | CPT/HCPCS: 77063; 77067 ==

== ENCOUNTER 2025-06-24 12:00 | Outpatient (CLI) | payer OTHER, SELFPAY ==
[2025-06-24 17:30] LABS: Cholesterol 317 mg/dl (140-200); HDL Cholesterol 48 mg/dl (40-60)
[2025-06-24 17:33] LABS: Triglycerides 452 mg/dl (30-150)
[2025-06-24 17:45] LABS: Free T4 (Free Thyroxine) 1.20 ng/dl (0.78-2.19)
[2025-06-24 17:49] LABS: T4 (Thyroxine) 8.8 ug/dl (5.53-11.0)
[2025-06-24 18:03] LABS: Thyroid Stimulating Hormone 0.64 uIU/mL (0.465-4.68)
[2025-06-26 08:14] LABS: Triiodothyronine (T3) Free 3.0 pg/mL (2.0-4.4)
== END 2025-06-24 23:59 ==
LOC: LAB.DROPOF 06-27 12:01
PROVIDERS: PCP Nurse Practitioner Family; Visit Provider Nurse Practitioner Family
DX: E03.9 Hypothyroidism, unspecified (principal); E78.5 Hyperlipidemia, unspecified
CPT/HCPCS: 80061; 84436; 84439; 84443; 84481

== ENCOUNTER 2025-07-11 16:29 | Outpatient (CLI) | payer OTHER, SELFPAY ==
[2025-07-11 16:54] LABS: Hematocrit 40.4 % (37.0-47.0); Hemoglobin 13.2 g/dL (12.2-16.2); Immature Granulocytes % 0.1 %; Mean Corpuscular HGB Conc 32.7 g/dL (31.8-35.4); Mean Corpuscular Hemoglobin 30.7 pg (27.0-31.2); Mean Corpuscular Volume 94.0 fl (81-99); Nucleated Red Blood Cells % 0 %; Platelet Count 182 K/mm3 (142-424); Red Blood Count 4.30 M/mm3 (4.20-5.40); Red Cell Distribution Width-SD 44.1 fL; White Blood Count 6.8 K/mm3 (4.8-10.8)
[2025-07-11 17:15] LABS: Monoscreen (Rapid) Negative (Negative)
[2025-07-11 17:46] LABS: Alanine Aminotransferase 31 U/L (12-78); Albumin Level 4.5 g/dl (3.5-5.0); Albumin/Globulin Ratio 1.5 (1.1-1.8); Alkaline Phosphatase 65 U/L (38-126); Anion Gap 9.0 mEq/L (5-15); Aspartate Amino Transferase 28 U/L (14-36); Bilirubin,Total 0.4 mg/dl (0.2-1.3); Blood Urea Nitrogen 16 mg/dl (7-17); Calcium 9.1 mg/dl (8.4-10.2); Carbon Dioxide 29 mmol/L (22.0-30.0); Chloride 100 mmol/L (98-107); Creatinine,Serum 0.70 mg/dl (0.52-1.04); Estimated Glomerular Filt Rate 86 ml/min (>60); GFR (African American) 104 ML/MIN (>60); Globulin 3.1 g/dL (1.3-3.2); Glucose 96 mg/dl (74-100); Potassium 4.0 mmoL/L (3.5-5.1); Sodium 134 mmol/L (136-145); Total Protein,Serum 7.6 g/dl (6.3-8.2)
== END 2025-07-11 23:59 | disposition home or self-care (01) ==
LOC: LAB 16:29
PROVIDERS: PCP Nurse Practitioner Family; Visit Provider Nurse Practitioner Family
DX: E03.9 Hypothyroidism, unspecified (principal); R09.A2 Foreign body sensation, throat; R59.1 Generalized enlarged lymph nodes; J02.9 Acute pharyngitis, unspecified
CPT/HCPCS: 36415; 80053; 85025; 86318; 86376; 86800; 87635

== ENCOUNTER 2025-07-27 13:43 | Outpatient (CLI) | payer OTHER, SELFPAY | END 2025-07-27 23:59 | disposition home or self-care (01) | LOC: LAB.DROPOF 07-28 10:43 | PROVIDERS: PCP Nurse Practitioner Family; Visit Provider Nurse Practitioner Family | DX: J02.9 Acute pharyngitis, unspecified (principal); R59.1 Generalized enlarged lymph nodes | CPT/HCPCS: 87070 ==

== ENCOUNTER 2025-08-05 13:21 | Outpatient (CLI) | payer OTHER, SELFPAY ==
--- NOTE | 2025-08-05 13:45 | US_ITS ---
FINAL REPORT CLINICAL HISTORY: Globus sensation COMPARISON: None FINDINGS: Limited sonographic images were obtained of the soft tissues in the bilateral neck at the area of interest. The salivary glands are unremarkable. There are normal-sized lymph nodes in the neck bilaterally. There are no masses or fluid collections. IMPRESSION: No evidence of mass or abnormal fluid collection at the area of interest.} Reviewed, Interpreted and Dictated by Graciela Cornell MD Transcribed by Naomy Sandoval Authenticated and [facility]
== END 2025-08-05 23:59 | disposition home or self-care (01) ==
LOC: RAD 13:21
PROVIDERS: PCP Nurse Practitioner Family; Visit Provider Nurse Practitioner Family
DX: R09.A2 Foreign body sensation, throat (principal); R59.1 Generalized enlarged lymph nodes
CPT/HCPCS: 76536

== ENCOUNTER 2025-08-24 15:00 | Outpatient (CLI) | payer OTHER, SELFPAY | END 2025-08-24 23:59 | disposition home or self-care (01) | LOC: LAB.DROPOF 19:58 | PROVIDERS: PCP Nurse Practitioner Family; Visit Provider Nurse Practitioner | DX: J02.9 Acute pharyngitis, unspecified (principal) | CPT/HCPCS: 87070 ==